=== PATIENT | female | born 1940 ===

== ENCOUNTER 2017-09-09 11:50 | Inpatient (IN) | payer MEDICARE, MEDICAID ==
[2017-09-09 11:50] VITALS: BMI 21.2
--- NOTE | 2017-09-09 12:27 | C.PDOC ---
History Of Present Illness 77 y/o female, whose PMH includes atrial Fibrillation, arrhythmia (afib), dementia, depression, HTN, hypercholesterolemia, and Seizures, who presents to the emergency department from shelter s/p having 2 episodes of seizure. Patient is a poor historian and is unable to tell if she used Keppra. Additionally, patient is pointing to chest. No other complaints were made. Time Seen by Provider: 09/09/17 12:10 Chief Complaint (Nursing): Seizure History Per: Patient History/Exam Limitations: no limitations Recent Seizure Activity Began: Just Before Arrival Number Of Seizures: Multiple (2) Length Of Seizures (Duration): Unknown Past Medical History Reviewed: Historical Data, Nursing Documentation, Vital Signs Vital Signs: Last Vital Signs Temp 98.4 F 09/09/17 12:14 Pulse 93 H 09/09/17 12:14 Resp 16 09/09/17 12:14 BP 157/78 H 09/09/17 12:14 Pulse Ox 97 09/09/17 15:14 - Medical History PMH: Anxiety, Arthritis, Atrial Fibrillation, Cardia Arrhythmia (afib), Dementia , Depression, HTN, Hypercholesterolemia, Rheumatoid Arthritis, Seizures Denies: Alzheimer's Disease, Chronic Kidney Disease Family History: States: Unknown Family Hx - Social History Hx Alcohol Use: No Hx Substance Use: No Review Of Systems Review Of Systems: ROS cannot be obtained secondary to pt's inabilty to answer questions. Constitutional: Negative for: Fever Respiratory: Negative for: Shortness of Breath Neurological: Positive for: Seizures Physical Exam - Physical Exam Appears: Well, Non-toxic, No Acute Distress Skin: Normal Color, Warm, Dry Head: Atraumatic, Normacephalic ED Course And Treatment - Laboratory Results Result Diagrams: 09/09/17 13:03 09/09/17 14:49 O2 Sat by Pulse Oximetry: 97 (room air) Pulse Ox Interpretation: Normal Medical Decision Making Medical Decision Making: Impression: 77 y/o female with 2 episodes of seizure prior to arrival from shelter. Poor historian and limited ROS. 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 A right frontal subarachnoid hemorrhage was resolved. Follow up CT or mRI are available if clinically warranted. 09/09/2017 2:40 PM Patient had a 3 minute seizure and was treated with Ativan, Keppra and Sodium Chloride. 09/09/2017 3:10 PM Case discussed with Dr. Maria Guadalupe Garcia who is accepting case and asked to view patient drug screen and admit to telemetry. Disposition - Disposition Disposition Time: 15:16 Condition: GOOD Forms: [employer] (Faroese) - Clinical Impression Clinical Impression: Seizure, Generalized-onset seizures - Scribe Statement The provider has reviewed the documentation as recorded by the Scribe Scribe Attestation: Daria Christianson MD Scribe Attestation: All medical record entries made by the Scribe were at my direction and personally dictated by me. I have reviewed the chart and agree that the record accurately reflects my personal performance of the history, physical exam, medical decision making, and the department course for this patient. I have also personally directed, reviewed, and agree with the discharge instructions and disposition. Decision To Admit - Pt Status Changed To: Hospital Disposition Of: Inpatient - Admit Certification Admit to Inpatient:: After my assessment, the patient will require hospitalization for at least two midnights. This is because of the severity of symptoms shown, intensity of services needed, and/or the medical risk in this patient being treated as an outpatient. - InPatient: Physician Admission Certification: I certify that this patient requires 2 or more midnights of care for the following reason:: After my assessment, the patient will require hospitalization for at least two midnights. This is because of the severity of symptoms shown, intensity of services needed, and/or the medical risk in this patient being treated as an outpatient. - . Bed Request Type: Telemetry (multiple seizure and chronic A fib) Patient Diagnosis: Generalized seizure disorder
[2017-09-09 12:56] LABS: BASO # 0.2 K/uL (0.0-0.2); BASO % 1.3 % (0.0-2.0); EOS # 0.3 K/uL (0.0-0.7); EOS % 2.1 % (0.0-4.0); HEMOGLOBIN 15.3 g/dL (11.0-16.0); LYMPH % 43.9 % (20.0-40.0); MEAN CELL VOLUME 85.2 fL (81.0-99.0); MEAN CORPUSCULAR HEMOGLOBIN 28.3 pg (27.0-31.0); MEAN CORPUSCULAR HGB CONC 33.2 g/dL (33.0-37.0); MEAN PLATELET VOLUME 9.5 fL (7.2-11.7); MONO # 0.9 K/uL (0.0-0.8); MONO % 6.3 % (0.0-10.0); NEUT # 6.4 K/uL (1.8-7.0); NEUT % 46.4 % (50.0-75.0); NRBC % 0.4 % (0.0-2.0); RBC 5.41 Mil/uL (3.80-5.20); RED CELL DISTRIBUTION WIDTH 14.3 % (11.5-14.5); WHITE BLOOD COUNT 13.7 K/uL (4.8-10.8)
--- NOTE | 2017-09-09 13:40 | CT ---
PROCEDURE: CT HEAD WITHOUT CONTRAST. HISTORY: seizure COMPARISON: Noncontrast head CT 03/30/2016. TECHNIQUE: Axial computed tomography images were obtained through the head/brain without intravenous contrast. Radiation dose: Total exam DLP = 840.58 mGy-cm. This CT exam was performed using one or more of the following dose reduction techniques: Automated exposure control, adjustment of the mA and/or kV according to patient size, and/or use of iterative reconstruction technique. FINDINGS: HEMORRHAGE: Prior right frontal intracranial hemorrhage has resolved. BRAIN: Interval prominent cystic encephalomalacia at the right frontal lobe representing chronic infarct is identified currently. A small chronic infarct is seen at the left occipital lobe in the interval as well as a chronic lacune of left thalamus and right maria a. Diffuse cerebral atrophy chronic microangiopathy are reiterated. Cerebellum is stable and unremarkable appearing. VENTRICLES: Unremarkable. No hydrocephalus. CALVARIUM: Unremarkable. PARANASAL SINUSES: Unremarkable as visualized. No significant inflammatory changes. MASTOID AIR CELLS: Right mastoid effusions identified. OTHER FINDINGS: None. 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 A right frontal subarachnoid hemorrhage has resolved. Follow-up CT or MRI are available if clinically warranted.
[2017-09-09 14:51] LABS: ALBUMIN 4.6 g/dL (3.5-5.0); BLOOD UREA NITROGEN 14 mg/dL (7-17); CALCIUM 9.7 mg/dl (8.6-10.4); GFR AFRICAN-AMERICAN > 60; GFR NON-AFRICAN AMERICAN > 60
[2017-09-09 14:52] LABS: ALB/GLOB RATIO 1.2 (1.0-2.1); ALT/SGPT 34 U/L (9-52); AST/SGOT 56 U/L (14-36)
[2017-09-09] MEDS: Sodium Chloride 0.9% 1,000 ML IV SCH ×2 (15:02→23:00)
[2017-09-09] MEDS ORDERED: Valproate 1,000 MG in Sodium Chloride 0.9% 100 ML IVPB ONE (15:25)
--- NOTE | 2017-09-09 15:40 | CP.PCM.HP ---
<Andrew Moctezuma - Last Filed: 09/09/17 16:30> Meds Allergies/Adverse Reactions: Allergies Allergy/AdvReac Type Severity Reaction Status Date / Time No Known Allergies Allergy Verified 03/21/16 09:49 Results - Vital Signs Recent Vital Signs: Last Vital Signs Temp 98.4 F 09/09/17 12:14 Pulse 120 H 09/09/17 15:45 Resp 18 09/09/17 15:45 BP 148/80 09/09/17 15:45 Pulse Ox 99 09/09/17 15:45 - Labs Result Diagrams: 09/09/17 13:03 09/09/17 14:49 Labs: Laboratory Results - last 24 hr 09/09/17 09/09/17 09/09/17 11:55 13:03 14:49 WBC 13.7 H RBC 5.41 H Hgb 15.3 Hct 46.0 MCV 85.2 MCH 28.3 MCHC 33.2 RDW 14.3 Plt Count 348 MPV 9.5 Neut % (Auto) 46.4 L Lymph % (Auto) 43.9 H Sumner % (Auto) 6.3 Eos % (Auto) 2.1 Baso % (Auto) 1.3 Neut # (Auto) 6.4 Lymph # (Auto) 6.0 H Sumner # (Auto) 0.9 H Eos # (Auto) 0.3 Baso # (Auto) 0.2 Differential Comment PT INR Sodium 140 Potassium 3.7 Chloride 101 Carbon Dioxide 22 Anion Gap 21 H BUN 14 Creatinine 0.8 Est GFR ( Amer) > 60 Est GFR (Non-Af Amer) > 60 POC Glucose (mg/dL) 254 H Random Glucose 249 H Calcium 9.7 Total Bilirubin 1.1 AST 56 H ALT 34 Alkaline Phosphatase 107 Troponin I 0.0160 Total Protein 8.6 H Albumin 4.6 Globulin 4.0 H Albumin/Globulin Ratio 1.2 Urine Color Urine Clarity Urine pH Ur Specific Kenna Urine Protein Urine Glucose (UA) Urine Ketones Urine Blood Urine Nitrate Urine Bilirubin Urine Urobilinogen Ur Leukocyte Esterase Urine WBC (Auto) Urine RBC (Auto) Ur Squamous Epith Cells Urine Bacteria Urine Opiates Screen Urine Methadone Screen Ur Barbiturates Screen Ur Phencyclidine Scrn Ur Amphetamines Screen U Benzodiazepines Scrn U Oth Cocaine Metabols U Cannabinoids Screen 09/09/17 09/09/17 09/09/17 15:43 16:08 16:09 WBC RBC Hgb Hct MCV MCH MCHC RDW Plt Count MPV Neut % (Auto) Lymph % (Auto) Sumner % (Auto) Eos % (Auto) Baso % (Auto) Neut # (Auto) Lymph # (Auto) Sumner # (Auto) Eos # (Auto) Baso # (Auto) Differential Comment PT 12.1 INR 1.1 Sodium Potassium Chloride Carbon Dioxide Anion Gap BUN Creatinine Est GFR ( Amer) Est GFR (Non-Af Amer) POC Glucose (mg/dL) Random Glucose Calcium Total Bilirubin AST ALT Alkaline Phosphatase Troponin I Total Protein Albumin Globulin Albumin/Globulin Ratio Urine Color Straw Urine Clarity Clear Urine pH 7.0 Ur Specific Kenna 1.010 Urine Protein 2+ H Urine Glucose (UA) 3+ H Urine Ketones Negative Urine Blood 1+ H Urine Nitrate Negative Urine Bilirubin Negative Urine Urobilinogen Normal Ur Leukocyte Esterase 1+ H Urine WBC (Auto) 42 H Urine RBC (Auto) 30 H Ur Squamous Epith Cells < 1 Urine Bacteria Rare Urine Opiates Screen Negative Urine Methadone Screen Negative Ur Barbiturates Screen Negative Ur Phencyclidine Scrn Negative Ur Amphetamines Screen Negative U Benzodiazepines Scrn Negative U Oth Cocaine Metabols Negative U Cannabinoids Screen Negative <Jonathan Rhoades - Last Filed: 09/09/17 17:01> History of Present Illness - History of Present Illness History of Present Illness: Medicine H&P CC: 2 witnessed seizures at [place]. HPI: 77 y/o female, whose PMH includes atrial Fibrillation, arrhythmia (afib), dementia, depression, HTN, hypercholesterolemia, and Seizures, who [facility] emergency department [facility] s[facility]p having 2 episodes of seizure. Patient is a poor historian and is unable to tell if she used Keppra. Additionally, patient is pointing to chest. No other complaints were made. as per ems pt has 2 witnessed seizures at [facility], pt awake but confused (hx of dementia) Patient had a 3 minute seizure in ED and was treated with Ativan, Keppra and Sodium Chloride. PMHx: Anxiety, Arthritis, Atrial Fibrillation, Cardia Arrhythmia (afib), Dementia, Depression, HTN, Hypercholesterolemia, Rheumatoid Arthritis, Seizures PSHx: Tonsillectomy, right brest cyst removal Meds: see EMR Allergies: NKDA FamHx: unknown SocHx: unknown PMD: Tamy Past Patient History - Infectious Disease Hx of Infectious Diseases: None - Past Medical History & Family History Past Medical History?: Yes - Past Social History Smoking Status: Never Smoked - CARDIAC Hx Atrial Fibrillation: Yes Hx Cardia Arrhythmia: Yes (afib) Hx Hypercholesterolemia: Yes Hx Hypertension: Yes - PULMONARY Hx Respiratory Disorders: No - NEUROLOGICAL Hx Alzheimer's Disease: No Hx Dementia: Yes Hx Seizures: Yes - HEENT Hx HEENT Problems: Yes Hx Cataracts: Yes - RENAL Hx Chronic Kidney Disease: No - ENDOCRINE/METABOLIC Hx Endocrine Disorders: Yes Hx Diabetes Mellitus Type 2: Yes - HEMATOLOGICAL/ONCOLOGICAL Hx Blood Disorders: No - INTEGUMENTARY Hx Dermatological Problems: No - MUSCULOSKELETAL/RHEUMATOLOGICAL Hx Arthritis: Yes Hx Rheumatoid Arthritis: Yes - GASTROINTESTINAL Hx Gastrointestinal Disorders: No - GENITOURINARY/GYNECOLOGICAL Hx Genitourinary Disorders: Yes Hx Incontinence: Yes Hx Urinary Tract Infection: Yes - PSYCHIATRIC Hx Anxiety: Yes Hx Depression: Yes Hx Substance Use: No - SURGICAL HISTORY Hx Surgeries: Yes (tonsillectomy, right brest cyst removal) Hx Hysterectomy: Yes - ANESTHESIA Hx Anesthesia: Yes Hx Anesthesia Reactions: No Hx Malignant Hyperthermia: No Physical Exam - Additional Findings Additional findings: - Constitutional Appears: No Acute Distress, Chronically Ill, Agitated - Head Exam Head Exam: ATRAUMATIC, NORMOCEPHALIC - Eye Exam Eye Exam: EOMI (however pupils Dilated) - ENT Exam ENT Exam: Mucous Membranes Moist - Respiratory Exam Respiratory Exam: NORMAL BREATHING PATTERN. absent: Respiratory Distress - Cardiovascular Exam Cardiovascular Exam: IRREGULAR RHYTHM. +S1, +S2 absent: Tachycardia - GI/Abdominal Exam GI & Abdominal Exam: Decreased Bowel Sounds. absent: Rebound, Rigid, Tenderness , Distended - Extremities Exam Extremities exam: Negative for: calf tenderness - Neurological Exam Neurological exam: absent: Alert, Awake, Oriented x3 -pt is lethargic / disoriented 2/2 hx of dementia + acute seizures. -cannot perform full neuro exam due to lack of cooperation, however patient moves right limbs and withdraws to pain (pt does not move Left limbs, left hand thenar eminence decreased musculature) - Psychiatric Exam Psychiatric exam: Flat Affect, Depressed Mood - Skin Skin Exam: Dry, Normal Color, Warm Results - Vital Signs Recent Vital Signs: Last Vital Signs Temp 98.4 F 09/09/17 12:14 Pulse 83 09/09/17 15:03 Resp 24 09/09/17 15:03 BP 186/105 H 09/09/17 15:03 Pulse Ox 97 09/09/17 15:18 - Labs Result Diagrams: 09/09/17 13:03 09/09/17 14:49 Labs: Laboratory Results - last 24 hr 09/09/17 09/09/17 09/09/17 11:55 13:03 14:49 WBC 13.7 H RBC 5.41 H Hgb 15.3 Hct 46.0 MCV 85.2 MCH 28.3 MCHC 33.2 RDW 14.3 Plt Count 348 MPV 9.5 Neut % (Auto) 46.4 L Lymph % (Auto) 43.9 H Sumner % (Auto) 6.3 Eos % (Auto) 2.1 Baso % (Auto) 1.3 Neut # (Auto) 6.4 Lymph # (Auto) 6.0 H Sumner # (Auto) 0.9 H Eos # (Auto) 0.3 Baso # (Auto) 0.2 Differential Comment Sodium 140 Potassium 3.7 Chloride 101 Carbon Dioxide 22 Anion Gap 21 H BUN 14 Creatinine 0.8 Est GFR ( Amer) > 60 Est GFR (Non-Af Amer) > 60 POC Glucose (mg/dL) 254 H Random Glucose 249 H Calcium 9.7 Total Bilirubin 1.1 AST 56 H ALT 34 Alkaline Phosphatase 107 Troponin I 0.0160 Total Protein 8.6 H Albumin 4.6 Globulin 4.0 H Albumin/Globulin Ratio 1.2 Assessment & Plan - Assessment and Plan (Free Text) Assessment: Seizure Neuro consult, Dr. 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 A right frontal subarachnoid hemorrhage was resolved. Follow up CT or mRI are available if clinically warranted. f/u UDS f/u UA, UC Atrial Fibrillation elequis 2.5mg PO qD Hypertension BP 186/105 on admission Pt received Hydralazine 10mg IVP no IVP, monitor BP Hydralazine 10mg IVP for SPB>180 Continue home meds Diabetes ISS - medium dose Prophylaxis - Date & Time Date: 09/09/17 Time: 15:40
[2017-09-09 16:07] LABS: INR 1.1; PROTHROMBIN TIME 12.1 SECONDS (9.7-12.2)
[2017-09-09] MEDS ORDERED: Magnesium Hydroxide Susp 30 ml UD PO PRN (16:14)
[2017-09-09] MEDS ORDERED: Alum-Mag Hydrox-Simethicone Susp (30 mL) PO PRN (16:14)
[2017-09-09 16:26] LABS: SQUAMOUS EPITHIAL < 1 /hpf (0-5); URINE BACTERIA RARE (<OCC); URINE BILIRUBIN NEGATIVE (NEGATIVE); URINE BLOOD 1+ (NEGATIVE); URINE CLARITY Clear (Clear); URINE COLOR Straw (YELLOW); URINE GLUCOSE (UA) 3+ mg/dL (Normal); URINE LEUKOCYTE ESTERASE 1+ Leu/uL (Negative); URINE PROTEIN 2+ mg/dL (NEGATIVE); URINE UROBILINOGEN NORMAL mg/dL (0.2-1.0)
[2017-09-09 16:29] LABS: BARBITURATES, UR NEGATIVE (NEGATIVE); BENZODIAZEPINES, UR NEGATIVE (NEGATIVE); OPIATES, UR NEGATIVE (NEGATIVE); PHENCYCLIDINE, UR NEGATIVE (NEGATIVE)
--- NOTE | 2017-09-09 17:03 | RAD ---
HISTORY: seizure COMPARISON: 04/04/2016. FINDINGS: LUNGS: There is mild pulmonary venous congestion. No focal consolidation. PLEURA: No significant pleural effusion identified, no pneumothorax apparent. CARDIOVASCULAR: The heart is enlarged. Atherosclerotic aortic arch calcifications are present. OSSEOUS STRUCTURES: History. VISUALIZED UPPER ABDOMEN: Normal. OTHER FINDINGS: None. IMPRESSION: Cardiomegaly and mild pulmonary venous congestion. No active pulmonary disease.
--- NOTE | 2017-09-09 17:32 | CP.PCM.HP ---
<Jonathan Rhoades - Last Filed: 09/09/17 17:59> History of Present Illness - History of Present Illness History of Present Illness: Medicine H&P CC: Seizure HPI: This 77 y/o female with PMHx of Seizures, atrial Fibrillation, dementia, depression, HTN, HLD - presents to the ED from assisted after experiencing seizures. As per ems, she had 2 witnessed seizures at [facility], and was awake but confused. The patient is a poor historian due to her hx of dementia, and is unable to tell if she uses Keppra. The patient was pointing to her chest upon arrival to the ED. No additional complaints were made. While in the ED, she experienced a 3 minute seizure and was treated with Ativan, Keppra and Sodium Chloride. Further ROS could not be obtained due to lethargy and lack of cooperation and during exam. ED course: patient received ativan 2mg IVP x2; kepra 1000mg IVPB x1; NS 0.9 at 125cc/hr; pt seen and examined by Dr. Marte (Neuro); CXR showed increased heart silouhet and increased vascular markings in the lungs; CT head showed chronic L occiput infarct and prior rt front subarrachnoid hemorrhage which resolved ( chronic); Ekg showed Afib. PMHx: Anxiety, Arthritis, Atrial Fibrillation, Cardia Arrhythmia (afib), Dementia, Depression, HTN, Hypercholesterolemia, Rheumatoid Arthritis, Seizures PSHx: tonsillectomy, right brest cyst removal Meds: see EMR Allergies: NKDA FamHx: unknown SocHx: unknown PMD: Tamy Present on Admission - Present on Admission Any Indicators Present on Admission: No Review of Systems - Review of Systems Systems not reviewed;Unavailable: Other (ROS cannot be obtained secondary to pt' s inabilty to answer questions.) Past Patient History - Infectious Disease Hx of Infectious Diseases: None - Past Medical History & Family History Past Medical History?: Yes - Past Social History Smoking Status: Never Smoked - CARDIAC Hx Atrial Fibrillation: Yes Hx Cardia Arrhythmia: Yes (afib) Hx Hypercholesterolemia: Yes Hx Hypertension: Yes - PULMONARY Hx Respiratory Disorders: No - NEUROLOGICAL Hx Alzheimer's Disease: No Hx Dementia: Yes Hx Seizures: Yes - HEENT Hx HEENT Problems: Yes Hx Cataracts: Yes - RENAL Hx Chronic Kidney Disease: No - ENDOCRINE/METABOLIC Hx Endocrine Disorders: Yes Hx Diabetes Mellitus Type 2: Yes - HEMATOLOGICAL/ONCOLOGICAL Hx Blood Disorders: No - INTEGUMENTARY Hx Dermatological Problems: No - MUSCULOSKELETAL/RHEUMATOLOGICAL Hx Arthritis: Yes Hx Rheumatoid Arthritis: Yes - GASTROINTESTINAL Hx Gastrointestinal Disorders: No - GENITOURINARY/GYNECOLOGICAL Hx Genitourinary Disorders: Yes Hx Incontinence: Yes Hx Urinary Tract Infection: Yes - PSYCHIATRIC Hx Anxiety: Yes Hx Depression: Yes Hx Substance Use: No - SURGICAL HISTORY Hx Surgeries: Yes (tonsillectomy, right brest cyst removal) Hx Hysterectomy: Yes - ANESTHESIA Hx Anesthesia: Yes Hx Anesthesia Reactions: No Hx Malignant Hyperthermia: No Meds Allergies/Adverse Reactions: Allergies Allergy/AdvReac Type Severity Reaction Status Date / Time No Known Allergies Allergy Verified 03/21/16 09:49 Physical Exam - Additional Findings Additional findings: - Constitutional Appears: No Acute Distress, Chronically Ill, Lethargic - Head Exam Head Exam: ATRAUMATIC, NORMOCEPHALIC - Eye Exam Eye Exam: -could not assess EOMI (patient sedated) -pupils dilated, however responsive to light. - ENT Exam ENT Exam: Mucous Membranes Moist - Respiratory Exam Respiratory Exam: NORMAL BREATHING PATTERN. absent: Respiratory Distress - Cardiovascular Exam Cardiovascular Exam: IRREGULAR RHYTHM. +S1, +S2. absent: Tachycardia - GI/Abdominal Exam GI & Abdominal Exam: Hypoactive Bowel Sounds, Soft. absent: Distended, Firm, Rebound, Rigid, Tenderness - Extremities Exam Extremities exam: Negative for: calf tenderness - Neurological Exam Neurological exam: absent: Alert, Awake, Oriented x3 - patient withdraws R arm/ R leg to deep palpation - L arm / leg with minimal movement. - Psychiatric Exam Psychiatric exam: Flat Affect, Depressed Mood - Skin Skin Exam: Dry, Normal Color, Warm Results - Vital Signs Recent Vital Signs: Last Vital Signs Temp 98.4 F 09/09/17 12:14 Pulse 120 H 09/09/17 15:45 Resp 18 09/09/17 15:45 BP 148/80 09/09/17 15:45 Pulse Ox 99 09/09/17 15:45 - Labs Result Diagrams: 09/09/17 13:03 09/09/17 14:49 Labs: Laboratory Results - last 24 hr 09/09/17 09/09/17 09/09/17 11:55 13:03 14:49 WBC 13.7 H RBC 5.41 H Hgb 15.3 Hct 46.0 MCV 85.2 MCH 28.3 MCHC 33.2 RDW 14.3 Plt Count 348 MPV 9.5 Neut % (Auto) 46.4 L Lymph % (Auto) 43.9 H [place] % (Auto) 6.3 Eos % (Auto) 2.1 Baso % (Auto) 1.3 Neut # (Auto) 6.4 Lymph # (Auto) 6.0 H [place] # (Auto) 0.9 H Eos # (Auto) 0.3 Baso # (Auto) 0.2 Differential Comment PT INR Sodium 140 Potassium 3.7 Chloride 101 Carbon Dioxide 22 Anion Gap 21 H BUN 14 Creatinine 0.8 Est GFR ( Amer) > 60 Est GFR (Non-Af Amer) > 60 POC Glucose (mg/dL) 254 H Random Glucose 249 H Calcium 9.7 Total Bilirubin 1.1 AST 56 H ALT 34 Alkaline Phosphatase 107 Troponin I 0.0160 Total Protein 8.6 H Albumin 4.6 Globulin 4.0 H Albumin/Globulin Ratio 1.2 Urine Color Urine Clarity Urine pH Ur Specific [place] Urine Protein Urine Glucose (UA) Urine Ketones Urine Blood Urine Nitrate Urine Bilirubin Urine Urobilinogen Ur Leukocyte Esterase Urine WBC (Auto) Urine RBC (Auto) Ur Squamous Epith Cells Urine Bacteria Urine Opiates Screen Urine Methadone Screen Ur Barbiturates Screen Ur Phencyclidine Scrn Ur Amphetamines Screen U Benzodiazepines Scrn U Oth Cocaine Metabols U Cannabinoids Screen 09/09/17 09/09/17 09/09/17 15:43 16:08 16:09 WBC RBC Hgb Hct MCV MCH MCHC RDW Plt Count MPV Neut % (Auto) Lymph % (Auto) [place] % (Auto) Eos % (Auto) Baso % (Auto) Neut # (Auto) Lymph # (Auto) [place] # (Auto) Eos # (Auto) Baso # (Auto) Differential Comment PT 12.1 INR 1.1 Sodium Potassium Chloride Carbon Dioxide Anion Gap BUN Creatinine Est GFR ( Amer) Est GFR (Non-Af Amer) POC Glucose (mg/dL) Random Glucose Calcium Total Bilirubin AST ALT Alkaline Phosphatase Troponin I Total Protein Albumin Globulin Albumin/Globulin Ratio Urine Color Straw Urine Clarity Clear Urine pH 7.0 Ur Specific [place] 1.010 Urine Protein 2+ H Urine Glucose (UA) 3+ H Urine Ketones Negative Urine Blood 1+ H Urine Nitrate Negative Urine Bilirubin Negative Urine Urobilinogen Normal Ur Leukocyte Esterase 1+ H Urine WBC (Auto) 42 H Urine RBC (Auto) 30 H Ur Squamous Epith Cells < 1 Urine Bacteria Rare Urine Opiates Screen Negative Urine Methadone Screen Negative Ur Barbiturates Screen Negative Ur Phencyclidine Scrn Negative Ur Amphetamines Screen Negative U Benzodiazepines Scrn Negative U Oth Cocaine Metabols Negative U Cannabinoids Screen Negative 09/09/17 16:35 WBC RBC Hgb Hct MCV MCH MCHC RDW Plt Count MPV Neut % (Auto) Lymph % (Auto) [place] % (Auto) Eos % (Auto) Baso % (Auto) Neut # (Auto) Lymph # (Auto) [place] # (Auto) Eos # (Auto) Baso # (Auto) Differential Comment PT INR Sodium Potassium Chloride Carbon Dioxide Anion Gap BUN Creatinine Est GFR ( Amer) Est GFR (Non-Af Amer) POC Glucose (mg/dL) 369 H Random Glucose Calcium Total Bilirubin AST ALT Alkaline Phosphatase Troponin I Total Protein Albumin Globulin Albumin/Globulin Ratio Urine Color Urine Clarity Urine pH Ur Specific [place] Urine Protein Urine Glucose (UA) Urine Ketones Urine Blood Urine Nitrate Urine Bilirubin Urine Urobilinogen Ur Leukocyte Esterase Urine WBC (Auto) Urine RBC (Auto) Ur Squamous Epith Cells Urine Bacteria Urine Opiates Screen Urine Methadone Screen Ur Barbiturates Screen Ur Phencyclidine Scrn Ur Amphetamines Screen U Benzodiazepines Scrn U Oth Cocaine Metabols U Cannabinoids Screen Assessment & Plan - Assessment and Plan (Free Text) Assessment: Seizure -Generalized-onset seizures -Neurology consult, Dr. Marte, f/u recs f/u repeat head CT in am f/u MRI in am f/u UDS f/u UC for EEG monday 09/11 Sodium Chloride 0.9%) 1,000 mls @ 125 mls/hr IV .Q8H [facility] Ativan) 2 mg IVP Q6H PRN Seizure activity Kepra 750mg IVPB Q12H hold pt home kepra 500mg PO q12 -Head CT: No definitive acute intracranial findings although interval chronic lacunes are identified as well as small chronic lobar infarction left occipital lobe and conversion of prior infarct or chronic status at the right frontal lobe at this time. A right frontal subarachnoid hemorrhage was resolved. Follow up CT or MRI are available if clinically warranted. see full report. -EKG showing afib, see full report -CXR showing inc vascular markings, inc heart border, see full report. Atrial Fibrillation admit to Tele Eliquis) 2.5 mg PO Q12H [facility] Digoxin) 0.125 mg PO 1400 [facility] Diabetes Neurontin) 300 mg PO TID [facility] Amaryl) 4 mg PO 0800,1700 [facility] Novolog) 0 unit SC ACHS [facility] Hypertension BP elevated on admission - high of 186/105 Norvasc) 10 mg PO DAILY [facility] Apresoline) 25 mg PO QID [facility] Apresoline) 10 mg IVP Q6H PRN - for SBP > 180 Lopressor) 100 mg PO BIDBS [facility] GERD Maalox Plus 30 Ml) 30 ml PO Q4H PRN Colace) 100 mg PO DAILY [facility] Milk Of Magnesia) 30 ml PO DAILY PRN Zofran Inj) 4 mg IVP Q8H PRN Depression Remeron) 7.5 mg PO HS [facility] Prophylaxis SCDs Protonix Inj) 40 mg IVP DAILY [facility] diet: fine chopped, soft (carb consistent, low sodium, heart healthy) Case discussed with Dr. Cannon - Date & Time Date: 09/09/17 Time: 16:00 <Jeff Cannon - Last Filed: 09/09/17 20:25> Results - Vital Signs Recent Vital Signs: Last Vital Signs Temp 98.4 F 09/09/17 12:14 Pulse 109 H 09/09/17 19:01 Resp 18 09/09/17 19:01 BP 133/79 09/09/17 19:01 Pulse Ox 96 09/09/17 19:01 - Labs Result Diagrams: 09/09/17 13:03 09/09/17 14:49 Labs: Laboratory Results - last 24 hr 09/09/17 09/09/17 09/09/17 11:55 13:03 14:49 WBC 13.7 H RBC 5.41 H Hgb 15.3 Hct 46.0 MCV 85.2 MCH 28.3 MCHC 33.2 RDW 14.3 Plt Count 348 MPV 9.5 Neut % (Auto) 46.4 L Lymph % (Auto) 43.9 H [place] % (Auto) 6.3 Eos % (Auto) 2.1 Baso % (Auto) 1.3 Neut # (Auto) 6.4 Lymph # (Auto) 6.0 H [place] # (Auto) 0.9 H Eos # (Auto) 0.3 Baso # (Auto) 0.2 Differential Comment PT INR Sodium 140 Potassium 3.7 Chloride 101 Carbon Dioxide 22 Anion Gap 21 H BUN 14 Creatinine 0.8 Est GFR ( Amer) > 60 Est GFR (Non-Af Amer) > 60 POC Glucose (mg/dL) 254 H Random Glucose 249 H Calcium 9.7 Total Bilirubin 1.1 AST 56 H ALT 34 Alkaline Phosphatase 107 Troponin I 0.0160 Total Protein 8.6 H Albumin 4.6 Globulin 4.0 H Albumin/Globulin Ratio 1.2 Urine Color Urine Clarity Urine pH Ur Specific [place] Urine Protein Urine Glucose (UA) Urine Ketones Urine Blood Urine Nitrate Urine Bilirubin Urine Urobilinogen Ur Leukocyte Esterase Urine WBC (Auto) Urine RBC (Auto) Ur Squamous Epith Cells Urine Bacteria Urine Opiates Screen Urine Methadone Screen Ur Barbiturates Screen Ur Phencyclidine Scrn Ur Amphetamines Screen U Benzodiazepines Scrn U Oth Cocaine Metabols U Cannabinoids Screen 09/09/17 09/09/17 09/09/17 15:43 16:08 16:09 WBC RBC Hgb Hct MCV MCH MCHC RDW Plt Count MPV Neut % (Auto) Lymph % (Auto) [place] % (Auto) Eos % (Auto) Baso % (Auto) Neut # (Auto) Lymph # (Auto) [place] # (Auto) Eos # (Auto) Baso # (Auto) Differential Comment PT 12.1 INR 1.1 Sodium Potassium Chloride Carbon Dioxide Anion Gap BUN Creatinine Est GFR ( Amer) Est GFR (Non-Af Amer) POC Glucose (mg/dL) Random Glucose Calcium Total Bilirubin AST ALT Alkaline Phosphatase Troponin I Total Protein Albumin Globulin Albumin/Globulin Ratio Urine Color Straw Urine Clarity Clear Urine pH 7.0 Ur Specific [place] 1.010 Urine Protein 2+ H Urine Glucose (UA) 3+ H Urine Ketones Negative Urine Blood 1+ H Urine Nitrate Negative Urine Bilirubin Negative Urine Urobilinogen Normal Ur Leukocyte Esterase 1+ H Urine WBC (Auto) 42 H Urine RBC (Auto) 30 H Ur Squamous Epith Cells < 1 Urine Bacteria Rare Urine Opiates Screen Negative Urine Methadone Screen Negative Ur Barbiturates Screen Negative Ur Phencyclidine Scrn Negative Ur Amphetamines Screen Negative U Benzodiazepines Scrn Negative U Oth Cocaine Metabols Negative U Cannabinoids Screen Negative 09/09/17 16:35 WBC RBC Hgb Hct MCV MCH MCHC RDW Plt Count MPV Neut % (Auto) Lymph % (Auto) [place] % (Auto) Eos % (Auto) Baso % (Auto) Neut # (Auto) Lymph # (Auto) [place] # (Auto) Eos # (Auto) Baso # (Auto) Differential Comment PT INR Sodium Potassium Chloride Carbon Dioxide Anion Gap BUN Creatinine Est GFR ( Amer) Est GFR (Non-Af Amer) POC Glucose (mg/dL) 369 H Random Glucose Calcium Total Bilirubin AST ALT Alkaline Phosphatase Troponin I Total Protein Albumin Globulin Albumin/Globulin Ratio Urine Color Urine Clarity Urine pH Ur Specific [place] Urine Protein Urine Glucose (UA) Urine Ketones Urine Blood Urine Nitrate Urine Bilirubin Urine Urobilinogen Ur Leukocyte Esterase Urine WBC (Auto) Urine RBC (Auto) Ur Squamous Epith Cells Urine Bacteria Urine Opiates Screen Urine Methadone Screen Ur Barbiturates Screen Ur Phencyclidine Scrn Ur Amphetamines Screen U Benzodiazepines Scrn U Oth Cocaine Metabols U Cannabinoids Screen Attending/Attestation - Attestation I have personally seen and examined this patient.: Yes I have fully participated in the care of the patient.: Yes I have reviewed all pertinent clinical information: Yes
[2017-09-09] MEDS: (Novolog) Insulin Aspart, Recombinant 100 u/ml 10 ml vial SC SCH ×2 (18:14→21:30)
--- NOTE | 2017-09-10 01:06 | CP.PCM.CON ---
History of Present Illness - History of Present Illness History of Present Illness: 77 yr old woman who presented to the ER with several generalized tonic clonic seizures, now has been loaded with Keppra and depakote to prevent further seizures. 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 No hemorrhage no skull fracture noted. 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 PERRL. EOMI. CN 2-12 normal. She was withdrawing to painful stimuli, and moving right upper and lower extremity against gravity well. She was not moving left upper or lower limb well and this is baseline. +corneals, +dolls,+ gag, Tracks well. Nonverbal at this time. Past Patient History - Infectious Disease Hx of Infectious Diseases: None - Past Medical History & Family History Past Medical History?: Yes - Past Social History Smoking Status: Never Smoked - CARDIAC Hx Atrial Fibrillation: Yes Hx Cardia Arrhythmia: Yes (afib) Hx Hypercholesterolemia: Yes Hx Hypertension: Yes - PULMONARY Hx Respiratory Disorders: No - NEUROLOGICAL Hx Alzheimer's Disease: No Hx Dementia: Yes Hx Seizures: Yes - HEENT Hx HEENT Problems: Yes Hx Cataracts: Yes - RENAL Hx Chronic Kidney Disease: No - ENDOCRINE/METABOLIC Hx Endocrine Disorders: Yes Hx Diabetes Mellitus Type 2: Yes - HEMATOLOGICAL/ONCOLOGICAL Hx Blood Disorders: No - INTEGUMENTARY Hx Dermatological Problems: No - MUSCULOSKELETAL/RHEUMATOLOGICAL Hx Arthritis: Yes Hx Rheumatoid Arthritis: Yes - GASTROINTESTINAL Hx Gastrointestinal Disorders: No - GENITOURINARY/GYNECOLOGICAL Hx Genitourinary Disorders: Yes Hx Incontinence: Yes Hx Urinary Tract Infection: Yes - PSYCHIATRIC Hx Anxiety: Yes Hx Depression: Yes Hx Substance Use: No - SURGICAL HISTORY Hx Surgeries: Yes (tonsillectomy, right brest cyst removal) Hx Hysterectomy: Yes - ANESTHESIA Hx Anesthesia: Yes Hx Anesthesia Reactions: No Hx Malignant Hyperthermia: No Meds Allergies/Adverse Reactions: Allergies Allergy/AdvReac Type Severity Reaction Status Date / Time No Known Allergies Allergy Verified 03/21/16 09:49 - Medications Medications: Current Medications Acetaminophen (Tylenol 325mg Tab) 325 mg PO Q4H PRN PRN Reason: Fever >100.4 F Al Hydrox/Mg Hydrox/Simethicone (Maalox Plus 30 Ml) 30 ml PO Q4H PRN PRN Reason: Heartburn Amlodipine Besylate (Norvasc) 10 mg PO DAILY [facility] Apixaban (Eliquis) 2.5 mg PO Q12H [facility] Last Admin: 09/09/17 17:30 Dose: Not Given Digoxin (Digoxin) 0.125 mg PO 1400 [facility] Docusate Sodium (Colace) 100 mg PO DAILY [facility] Gabapentin (Neurontin) 300 mg PO TID [facility] Last Admin: 09/09/17 18:13 Dose: Not Given Glimepiride (Amaryl) 4 mg PO 0800,1700 [facility] Last Admin: 09/09/17 17:30 Dose: Not Given Hydralazine HCl (Apresoline) 25 mg PO QID [facility] Last Admin: 09/09/17 22:00 Dose: Not Given Hydralazine HCl (Apresoline) 10 mg IVP Q6H PRN PRN Reason: Systolic Blood Pressure Sodium Chloride (Sodium Chloride 0.9%) 1,000 mls @ 125 mls/hr IV .Q8H [facility] Last Admin: 09/09/17 23:00 Dose: 125 mls/hr Levetiracetam 750 mg/ Sodium (Chloride) 107.5 mls @ 420 mls/hr IVPB Q12H [facility] Insulin Aspart (Novolog) 0 unit SC ACHS [facility] PRN Reason: Protocol Last Admin: 09/09/17 21:30 Dose: Not Given Lorazepam (Ativan) 2 mg IVP Q6H PRN PRN Reason: Seizure activity Magnesium Hydroxide (Milk Of Magnesia) 30 ml PO DAILY PRN PRN Reason: Constipation Metoprolol Tartrate (Lopressor) 100 mg PO BIDBS [facility] Last Admin: 09/09/17 17:31 Dose: 100 mg Mirtazapine (Remeron) 7.5 mg PO HS [facility] Last Admin: 09/09/17 22:00 Dose: Not Given Ondansetron HCl (Zofran Inj) 4 mg IVP Q8H PRN PRN Reason: Nausea/Vomiting Pantoprazole Sodium (Protonix Inj) 40 mg IVP DAILY [facility] Results - Vital Signs Recent Vital Signs: Last Vital Signs Temp 97.9 F 09/09/17 20:29 Pulse 96 H 09/09/17 23:48 Resp 20 09/09/17 23:48 BP 147/74 09/09/17 23:48 Pulse Ox 98 09/09/17 23:48 - Labs Result Diagrams: 09/09/17 13:03 09/09/17 14:49 Labs: Laboratory Results - last 24 hr 09/09/17 09/09/17 09/09/17 11:55 13:03 14:49 WBC 13.7 H RBC 5.41 H Hgb 15.3 Hct 46.0 MCV 85.2 MCH 28.3 MCHC 33.2 RDW 14.3 Plt Count 348 MPV 9.5 Neut % (Auto) 46.4 L Lymph % (Auto) 43.9 H [place] % (Auto) 6.3 Eos % (Auto) 2.1 Baso % (Auto) 1.3 Neut # (Auto) 6.4 Lymph # (Auto) 6.0 H [place] # (Auto) 0.9 H Eos # (Auto) 0.3 Baso # (Auto) 0.2 Differential Comment PT INR Sodium 140 Potassium 3.7 Chloride 101 Carbon Dioxide 22 Anion Gap 21 H BUN 14 Creatinine 0.8 Est GFR ( Amer) > 60 Est GFR (Non-Af Amer) > 60 POC Glucose (mg/dL) 254 H Random Glucose 249 H Calcium 9.7 Total Bilirubin 1.1 AST 56 H ALT 34 Alkaline Phosphatase 107 Troponin I 0.0160 Total Protein 8.6 H Albumin 4.6 Globulin 4.0 H Albumin/Globulin Ratio 1.2 Urine Color Urine Clarity Urine pH Ur Specific [place] Urine Protein Urine Glucose (UA) Urine Ketones Urine Blood Urine Nitrate Urine Bilirubin Urine Urobilinogen Ur Leukocyte Esterase Urine WBC (Auto) Urine RBC (Auto) Ur Squamous Epith Cells Urine Bacteria Urine Opiates Screen Urine Methadone Screen Ur Barbiturates Screen Ur Phencyclidine Scrn Ur Amphetamines Screen U Benzodiazepines Scrn U Oth Cocaine Metabols U Cannabinoids Screen 09/09/17 09/09/17 09/09/17 15:43 16:08 16:09 WBC RBC Hgb Hct MCV MCH MCHC RDW Plt Count MPV Neut % (Auto) Lymph % (Auto) [place] % (Auto) Eos % (Auto) Baso % (Auto) Neut # (Auto) Lymph # (Auto) [place] # (Auto) Eos # (Auto) Baso # (Auto) Differential Comment PT 12.1 INR 1.1 Sodium Potassium Chloride Carbon Dioxide Anion Gap BUN Creatinine Est GFR ( Amer) Est GFR (Non-Af Amer) POC Glucose (mg/dL) Random Glucose Calcium Total Bilirubin AST ALT Alkaline Phosphatase Troponin I Total Protein Albumin Globulin Albumin/Globulin Ratio Urine Color Straw Urine Clarity Clear Urine pH 7.0 Ur Specific [place] 1.010 Urine Protein 2+ H Urine Glucose (UA) 3+ H Urine Ketones Negative Urine Blood 1+ H Urine Nitrate Negative Urine Bilirubin Negative Urine Urobilinogen Normal Ur Leukocyte Esterase 1+ H Urine WBC (Auto) 42 H Urine RBC (Auto) 30 H Ur Squamous Epith Cells < 1 Urine Bacteria Rare Urine Opiates Screen Negative Urine Methadone Screen Negative Ur Barbiturates Screen Negative Ur Phencyclidine Scrn Negative Ur Amphetamines Screen Negative U Benzodiazepines Scrn Negative U Oth Cocaine Metabols Negative U Cannabinoids Screen Negative 09/09/17 09/09/17 16:35 21:28 WBC RBC Hgb Hct MCV MCH MCHC RDW Plt Count MPV Neut % (Auto) Lymph % (Auto) [place] % (Auto) Eos % (Auto) Baso % (Auto) Neut # (Auto) Lymph # (Auto) [place] # (Auto) Eos # (Auto) Baso # (Auto) Differential Comment PT INR Sodium Potassium Chloride Carbon Dioxide Anion Gap BUN Creatinine Est GFR ( Amer) Est GFR (Non-Af Amer) POC Glucose (mg/dL) 369 H 273 H Random Glucose Calcium Total Bilirubin AST ALT Alkaline Phosphatase Troponin I Total Protein Albumin Globulin Albumin/Globulin Ratio Urine Color Urine Clarity Urine pH Ur Specific [place] Urine Protein Urine Glucose (UA) Urine Ketones Urine Blood Urine Nitrate Urine Bilirubin Urine Urobilinogen Ur Leukocyte Esterase Urine WBC (Auto) Urine RBC (Auto) Ur Squamous Epith Cells Urine Bacteria Urine Opiates Screen Urine Methadone Screen Ur Barbiturates Screen Ur Phencyclidine Scrn Ur Amphetamines Screen U Benzodiazepines Scrn U Oth Cocaine Metabols U Cannabinoids Screen Assessment & Plan - Assessment and Plan (Free Text) Assessment: 77 yr old woman who had several seizures and apparently is on keppra in intermediate. She has an old stroke that is acting as a focus and will need lifelong antiepileptic therapy. I will also recommend an MRI Brain. Plan: 1. Continue on keprra 500 mg bid 2. Continue on depakote 500 mg bid. 3. EEG monday 4. MRI brain when available. Thank you dr. reyes
[2017-09-10 04:25] LABS: BASO # 0.2 K/uL (0.0-0.2); BASO % 1.3 % (0.0-2.0); EOS % 0.1 % (0.0-4.0); LYMPH # 2.2 K/uL (1.0-4.3); LYMPH % 14.6 % (20.0-40.0); MEAN CELL VOLUME 84.6 fL (81.0-99.0); MEAN CORPUSCULAR HEMOGLOBIN 28.3 pg (27.0-31.0); MEAN CORPUSCULAR HGB CONC 33.5 g/dL (33.0-37.0); MEAN PLATELET VOLUME 8.8 fL (7.2-11.7); MONO # 0.6 K/uL (0.0-0.8); MONO % 4.1 % (0.0-10.0); NEUT # 11.9 K/uL (1.8-7.0); NEUT % 79.9 % (50.0-75.0); NRBC % 0.1 % (0.0-2.0); RBC 5.3 Mil/uL (3.80-5.20); RED CELL DISTRIBUTION WIDTH 14.5 % (11.5-14.5); WHITE BLOOD COUNT 14.9 K/uL (4.8-10.8)
[2017-09-10 04:27] LABS: ALB/GLOB RATIO 1.2 (1.0-2.1); ALBUMIN 4.5 g/dL (3.5-5.0); ALT/SGPT 46 U/L (9-52); AST/SGOT 36 U/L (14-36); BLOOD UREA NITROGEN 14 mg/dL (7-17); CALCIUM 10.1 mg/dl (8.6-10.4); GFR AFRICAN-AMERICAN > 60; GFR NON-AFRICAN AMERICAN > 60; HDL CHOLESTEROL 46 mg/dL (30-70)
[2017-09-10 04:38] LABS: LDL CHOLESTEROL 111 mg/dL (0-129)
[2017-09-10] MEDS ORDERED: Tramadol 25 mg PO ONE (05:37)
[2017-09-10] MEDS: Sodium Chloride 0.9% 1,000 ML IV SCH ×4 (07:10→23:28)
[2017-09-10] MEDS ORDERED: Sodium Chloride 0.9% 1,000 ML ONE (07:11)
--- NOTE | 2017-09-10 08:40 | CP.PCM.PN ---
Subjective - Date & Time of Evaluation Date of Evaluation: 09/10/17 Time of Evaluation: 15:17 - Subjective Subjective: PGY-[address] Cannon. No acute events noted overnight. Patient AAOx3. With left sided weakness due to old stroke. Able to follow commands but some component of expressive aphasia. Stated she did not have any pain and that she felt better today. Objective - Vital Signs/Intake and Output Vital Signs (last 24 hours): Temp Pulse Resp BP Pulse Ox 98.5 F 87 17 133/77 97 09/10/17 07:10 09/10/17 08:05 09/10/17 08:05 09/10/17 08:05 09/10/17 08:05 - Medications Medications: Current Medications Acetaminophen (Tylenol 325mg Tab) 325 mg PO Q4H PRN PRN Reason: Fever >100.4 F Al Hydrox/Mg Hydrox/Simethicone (Maalox Plus 30 Ml) 30 ml PO Q4H PRN PRN Reason: Heartburn Amlodipine Besylate (Norvasc) 10 mg PO DAILY [facility] Apixaban (Eliquis) 2.5 mg PO Q12H [facility] Last Admin: 09/10/17 05:11 Dose: Not Given Digoxin (Digoxin) 0.125 mg PO 1400 [facility] Docusate Sodium (Colace) 100 mg PO DAILY [facility] Gabapentin (Neurontin) 300 mg PO TID [facility] Last Admin: 09/09/17 18:13 Dose: Not Given Glimepiride (Amaryl) 4 mg PO 0800,1700 [facility] Last Admin: 09/09/17 17:30 Dose: Not Given Hydralazine HCl (Apresoline) 25 mg PO QID [facility] Last Admin: 09/09/17 22:00 Dose: Not Given Hydralazine HCl (Apresoline) 10 mg IVP Q6H PRN PRN Reason: Systolic Blood Pressure Sodium Chloride (Sodium Chloride 0.9%) 1,000 mls @ 125 mls/hr IV .Q8H [facility] Last Admin: 09/10/17 07:10 Dose: 125 mls/hr Levetiracetam 750 mg/ Sodium (Chloride) 107.5 mls @ 420 mls/hr IVPB Q12H [facility] Insulin Aspart (Novolog) 0 unit SC ACHS [facility] PRN Reason: Protocol Last Admin: 09/09/17 21:30 Dose: Not Given Lorazepam (Ativan) 2 mg IVP Q6H PRN PRN Reason: Seizure activity Magnesium Hydroxide (Milk Of Magnesia) 30 ml PO DAILY PRN PRN Reason: Constipation Metoprolol Tartrate (Lopressor) 100 mg PO BIDBS [facility] Last Admin: 09/09/17 17:31 Dose: 100 mg Mirtazapine (Remeron) 7.5 mg PO HS [facility] Last Admin: 09/09/17 22:00 Dose: Not Given Ondansetron HCl (Zofran Inj) 4 mg IVP Q8H PRN PRN Reason: Nausea/Vomiting Pantoprazole Sodium (Protonix Inj) 40 mg IVP DAILY [facility] - Labs Labs: 09/10/17 04:14 09/10/17 04:14 PT 12.1 SECONDS (9.7-12.2) 09/09/17 15:43 INR 1.1 09/09/17 15:43 - Additional Findings Additional findings: - Constitutional Appears: No Acute Distress, Chronically Ill, Lethargic - Head Exam Head Exam: ATRAUMATIC, NORMOCEPHALIC - Eye Exam Eye Exam: -eomi, perrla - ENT Exam ENT Exam: Mucous Membranes Moist - Respiratory Exam Respiratory Exam: NORMAL BREATHING PATTERN. absent: Respiratory Distress - Cardiovascular Exam Cardiovascular Exam: IRREGULAR RHYTHM. +S1, +S2. absent: Tachycardia - GI/Abdominal Exam GI & Abdominal Exam: Hypoactive Bowel Sounds, Soft. absent: Distended, Firm, Rebound, Rigid, Tenderness - Extremities Exam Extremities exam: Negative for: calf tenderness - Neurological Exam Neurological exam: absent: Alert, Awake, Oriented x3 - patient withdraws R arm/ R leg to deep palpation - L arm / leg with minimal movement. - Psychiatric Exam Psychiatric exam: Flat Affect, Depressed Mood - Skin Skin Exam: Dry, Normal Color, Warm Assessment and Plan - Assessment and Plan (Free Text) Assessment: Seizure -Generalized-onset seizures -Neurology consult, Dr. Marte, f/u recs * She has an old stroke that is acting as a focus and will need lifelong antiepileptic therapy f/u repeat head CT f/u MRI monday 09/11 UDS NEGATIVE UCx 09/09 shows possible contamination repeat UCx ordered for EEG monday 09/11 Dysphagia/Modified consistency diet - finely chopped and thin liquids Sodium Chloride 0.9%) 1,000 mls @ 75 mls/hr IV .Q8H [facility] Ativan 2 mg IVP Q6H PRN Seizure activity Keppra 750mg IVPB Q12H hold pt home keppra 500mg PO q12 -Head CT: No definitive acute intracranial findings although interval chronic lacunes are identified as well as small chronic lobar infarction left occipital lobe and conversion of prior infarct or chronic status at the right frontal lobe at this time. A right frontal subarachnoid hemorrhage was resolved. Follow up CT or MRI are available if clinically warranted. see full report. -EKG showing afib, see full report -CXR showing inc vascular markings, inc heart border, see full report. Atrial Fibrillation admit to Tele Eliquis 2.5 mg PO Q12H [facility] Digoxin 0.125 mg PO 1400 [facility] Diabetes Lipid panel NORMAL, TSH/Free T4 NORMAL Neurontin 300 mg PO TID [facility] Amaryl 4 mg PO 0800,1700 [facility] Novolog 0 unit SC ACHS [facility] Hypertension BP elevated on admission - high of 186/105 - improved Norvasc 10 mg PO DAILY [facility] Apresoline 25 mg PO QID [facility] Apresoline 10 mg IVP Q6H PRN - for SBP > 180 Lopressor 100 mg PO BIDBS [facility] GERD Maalox Plus 30 Ml 30 ml PO Q4H PRN Colace 100 mg PO DAILY [facility] Milk Of Magnesia 30 ml PO DAILY PRN Zofran Inj 4 mg IVP Q8H PRN Depression Remeron 7.5 mg PO HS [facility] Prophylaxis SCDs Protonix Inj 40 mg IVP DAILY [facility] diet: fine chopped, soft (carb consistent, low sodium, heart healthy) PT/OT screen Speech therapy screen Swallow eval and treat CODE STATUS: DNR/DNI Case discussed with Dr. Cannon
[2017-09-10] MEDS: (Novolog) Insulin Aspart, Recombinant 100 u/ml 10 ml vial SC SCH ×4 (08:54→21:17)
--- NOTE | 2017-09-10 13:42 | RAD ---
HISTORY: Seizure, AMS COMPARISON: 09/09/2017. FINDINGS: LUNGS: The lungs are well inflated. There is mild pulmonary venous congestion. PLEURA: No significant pleural effusion identified, no pneumothorax apparent. CARDIOVASCULAR: There is moderate cardiomegaly. OSSEOUS STRUCTURES: No significant abnormalities. VISUALIZED UPPER ABDOMEN: Normal. OTHER FINDINGS: None. IMPRESSION: No active pulmonary disease. Moderate cardiomegaly and mild pulmonary venous congestion.
[2017-09-10] MEDS ORDERED: Digoxin 125 mcg (0.125 mg) Tab PO SCH (14:00)
[2017-09-10] MEDS: Digoxin 125 mcg (0.125 mg) Tab PO SCH (16:00)
--- NOTE | 2017-09-10 17:48 | CT ---
PROCEDURE: CT HEAD WITHOUT CONTRAST. HISTORY: seizure, ams COMPARISON: 09/09/2017. TECHNIQUE: Axial computed tomography images were obtained through the head/brain without intravenous contrast. Radiation dose: Total exam DLP = 860.59 MGy-cm. This CT exam was performed using one or more of the following dose reduction techniques: Automated exposure control, adjustment of the mA and/or kV according to patient size, and/or use of iterative reconstruction technique. FINDINGS: HEMORRHAGE: No intracranial hemorrhage. BRAIN: There is redemonstration of right frontal and parietal lobe cystic encephalomalacia with volume loss and ex vacuo dilatation of the right lateral ventricle. There is an old left watershed territory infarction at the parieto-occipital lobe. Carey-white matter differentiation is preserved. There are old lacunar infarctions in the left basal ganglia. There is an old infarction in the right basal ganglia. There is no mass, mass effect or abnormal extra-axial fluid collection. VENTRICLES: There is mild age-related global parenchymal volume loss and proportionate enlargement of the ventricles and cortical sulci. CALVARIUM: The skull base and calvarium are normal. PARANASAL SINUSES: Predominantly clear. MASTOID AIR CELLS: Predominantly clear. OTHER FINDINGS: None. IMPRESSION: No acute intracranial abnormality. Right frontal and parietal lobe cystic encephalomalacia, sequela of remote MCA territory infarction. Old left MCA [employer]FFIC [employer] watershed territory infarction. Old lacunar infarctions in the right basal ganglia and left thalamus.
[2017-09-11 00:27] VITALS: RESP 20
[2017-09-11] MEDS: (Novolog) Insulin Aspart, Recombinant 100 u/ml 10 ml vial SC SCH ×4 (07:10→22:24)
--- NOTE | 2017-09-11 07:12 | CP.PCM.PN ---
Subjective - Date & Time of Evaluation Date of Evaluation: 09/11/17 Time of Evaluation: 07:09 - Subjective Subjective: Ms. Aranda was seen and examined at the bedside. She is alert, denies any headache, dizziness, blurred vision. She is able to follow simple commands such as opning her mouth, raising her right upper extremity with minimal movement noted in the right lower extremity, and left upper extremity contracted,and no movement noted in the lower extremity. There was no untoward events overnight. Objective - Vital Signs/Intake and Output Vital Signs (last 24 hours): Temp Pulse Resp BP Pulse Ox 99 F 86 20 151/86 H 95 09/10/17 23:25 09/10/17 23:30 09/10/17 23:25 09/10/17 23:25 09/10/17 23:25 - Medications Medications: Current Medications Acetaminophen (Tylenol 325mg Tab) 325 mg PO Q4H PRN PRN Reason: Fever >100.4 F Al Hydrox/Mg Hydrox/Simethicone (Maalox Plus 30 Ml) 30 ml PO Q4H PRN PRN Reason: Heartburn Amlodipine Besylate (Norvasc) 10 mg PO DAILY [facility] Last Admin: 09/10/17 10:25 Dose: Not Given Apixaban (Eliquis) 2.5 mg PO Q12H [facility] Last Admin: 09/11/17 06:03 Dose: 2.5 mg Digoxin (Digoxin) 0.125 mg PO 1400 [facility] Last Admin: 09/10/17 16:00 Dose: 0.125 mg Docusate Sodium (Colace) 100 mg PO DAILY [facility] Last Admin: 09/10/17 10:24 Dose: Not Given Gabapentin (Neurontin) 300 mg PO TID [facility] Last Admin: 09/10/17 17:53 Dose: 300 mg Glimepiride (Amaryl) 4 mg PO 0800,1700 [facility] Last Admin: 09/10/17 16:16 Dose: 4 mg Hydralazine HCl (Apresoline) 25 mg PO QID [facility] Last Admin: 09/10/17 21:22 Dose: 25 mg Hydralazine HCl (Apresoline) 10 mg IVP Q6H PRN PRN Reason: Systolic Blood Pressure Levetiracetam 750 mg/ Sodium (Chloride) 107.5 mls @ 420 mls/hr IVPB Q12H [facility] Last Admin: 09/10/17 21:22 Dose: 420 mls/hr Sodium Chloride (Sodium Chloride 0.9%) 1,000 mls @ 50 mls/hr IV .Q20H [facility] Last Admin: 09/10/17 23:28 Dose: Not Given Insulin Aspart (Novolog) 0 unit SC ACHS [facility] PRN Reason: Protocol Last Admin: 09/10/17 21:17 Dose: Not Given Lorazepam (Ativan) 2 mg IVP Q6H PRN PRN Reason: Seizure activity Magnesium Hydroxide (Milk Of Magnesia) 30 ml PO DAILY PRN PRN Reason: Constipation Metoprolol Tartrate (Lopressor) 100 mg PO BIDBS [facility] Last Admin: 09/10/17 16:08 Dose: 100 mg Mirtazapine (Remeron) 7.5 mg PO HS [facility] Last Admin: 09/10/17 21:55 Dose: 7.5 mg Ondansetron HCl (Zofran Inj) 4 mg IVP Q8H PRN PRN Reason: Nausea/Vomiting Pantoprazole Sodium (Protonix Inj) 40 mg IVP DAILY [facility] Last Admin: 09/10/17 10:30 Dose: 40 mg - Labs Labs: 09/10/17 04:14 09/10/17 04:14 PT 12.1 SECONDS (9.7-12.2) 09/09/17 15:43 INR 1.1 09/09/17 15:43 - Constitutional Appears: No Acute Distress - Head Exam Head Exam: NORMAL INSPECTION - Eye Exam Pupil Exam: PERRL - Neurological Exam Neurological Exam: Alert, Awake Neuro motor strength exam: Left Upper Extremity: 4, Right Upper Extremity: 0 ( contracted), Left Lower Extremity: 2/1, Right Lower Extremity: 0 Additional comments: awake, alert, able to follow simple commands, sensation is intact. Assessment and Plan (1) Seizure Assessment & Plan: Case discussed with Dr. Box, continue all current medical regimen. Pending EEG and MRI of the brain. Recommend hydration, treat any underlying infection and electrolyte abnormalities. Status: Acute
[2017-09-11 08:01] LABS: BASO % 0.5 % (0.0-2.0); EOS # 0.1 K/uL (0.0-0.7); HEMOGLOBIN 14.1 g/dL (11.0-16.0); LYMPH # 2.1 K/uL (1.0-4.3); MEAN CELL VOLUME 84.1 fL (81.0-99.0); MEAN CORPUSCULAR HEMOGLOBIN 28.9 pg (27.0-31.0); MEAN CORPUSCULAR HGB CONC 34.4 g/dL (33.0-37.0); MEAN PLATELET VOLUME 9.3 fL (7.2-11.7); MONO # 0.6 K/uL (0.0-0.8); MONO % 6.1 % (0.0-10.0); NEUT # 7.7 K/uL (1.8-7.0); NEUT % 72.4 % (50.0-75.0); NRBC % 0.1 % (0.0-2.0); RBC 4.88 Mil/uL (3.80-5.20); WHITE BLOOD COUNT 10.6 K/uL (4.8-10.8)
[2017-09-11 08:15] LABS: ALB/GLOB RATIO 1.1 (1.0-2.1); ALBUMIN 3.9 g/dL (3.5-5.0); ALT/SGPT 39 U/L (9-52); AST/SGOT 56 U/L (14-36); BLOOD UREA NITROGEN 14 mg/dL (7-17); CALCIUM 9.7 mg/dl (8.6-10.4); GFR AFRICAN-AMERICAN > 60; GFR NON-AFRICAN AMERICAN > 60
[2017-09-11] MEDS: Digoxin 125 mcg (0.125 mg) Tab PO SCH (13:07)
--- NOTE | 2017-09-11 15:23 | CP.PCM.PN ---
<[place] to[place] E - Last Filed: 09/11/17 18:35> Subjective - Date & Time of Evaluation Date of Evaluation: 09/11/17 Time of Evaluation: 08:20 - Subjective Subjective: Medicine progress note ( Dr. Francisco's Service) Patient was seen and examined at bedside. Patient is alert and awake. Patient denies any acute issues or discomfort. Patient is with left sided weakness as a result of an old CVA and with possibly expressive aphasia. Patient is able to follow some commands. As per pablo, patient is refusing diagnostic testing Objective - Vital Signs/Intake and Output Vital Signs (last 24 hours): Temp Pulse Resp BP Pulse Ox 98.2 F 86 20 168/80 H 96 09/11/17 07:00 09/11/17 14:34 09/11/17 07:00 09/11/17 07:00 09/11/17 14:34 - Medications Medications: Current Medications Acetaminophen (Tylenol 325mg Tab) 325 mg PO Q4H PRN PRN Reason: Fever >100.4 F Al Hydrox/Mg Hydrox/Simethicone (Maalox Plus 30 Ml) 30 ml PO Q4H PRN PRN Reason: Heartburn Amlodipine Besylate (Norvasc) 10 mg PO DAILY [facility] Last Admin: 09/11/17 10:10 Dose: 10 mg Apixaban (Eliquis) 2.5 mg PO Q12H [facility] Last Admin: 09/11/17 06:03 Dose: 2.5 mg Digoxin (Digoxin) 0.125 mg PO 1400 [facility] Last Admin: 09/11/17 13:07 Dose: 0.125 mg Docusate Sodium (Colace) 100 mg PO DAILY [facility] Last Admin: 09/11/17 10:10 Dose: 100 mg Gabapentin (Neurontin) 300 mg PO TID [facility] Last Admin: 09/11/17 13:07 Dose: 300 mg Glimepiride (Amaryl) 4 mg PO 0800,1700 [facility] Last Admin: 09/11/17 08:52 Dose: 4 mg Hydralazine HCl (Apresoline) 25 mg PO QID [facility] Last Admin: 09/11/17 13:08 Dose: 25 mg Hydralazine HCl (Apresoline) 10 mg IVP Q6H PRN PRN Reason: Systolic Blood Pressure Last Admin: 09/11/17 10:11 Dose: 10 mg Levetiracetam 750 mg/ Sodium (Chloride) 107.5 mls @ 420 mls/hr IVPB Q12H [facility] Last Admin: 09/11/17 10:11 Dose: 420 mls/hr Sodium Chloride (Sodium Chloride 0.9%) 1,000 mls @ 50 mls/hr IV .Q20H [facility] Last Admin: 09/10/17 23:28 Dose: Not Given Insulin Aspart (Novolog) 0 unit SC ACHS [facility] PRN Reason: Protocol Last Admin: 09/11/17 12:58 Dose: 3 unit Lorazepam (Ativan) 1 mg IVP Q6H PRN PRN Reason: Seizure activity Magnesium Hydroxide (Milk Of Magnesia) 30 ml PO DAILY PRN PRN Reason: Constipation Metoprolol Tartrate (Lopressor) 100 mg PO BIDBS [facility] Last Admin: 09/11/17 08:52 Dose: 100 mg Mirtazapine (Remeron) 7.5 mg PO HS [facility] Last Admin: 09/10/17 21:55 Dose: 7.5 mg Ondansetron HCl (Zofran Inj) 4 mg IVP Q8H PRN PRN Reason: Nausea/Vomiting Pantoprazole Sodium (Protonix Inj) 40 mg IVP DAILY [facility] Last Admin: 09/11/17 10:10 Dose: 40 mg - Labs Labs: 09/11/17 07:50 09/11/17 07:50 PT 12.1 SECONDS (9.7-12.2) 09/09/17 15:43 INR 1.1 09/09/17 15:43 - Constitutional Appears: No Acute Distress - Head Exam Head Exam: ATRAUMATIC - Eye Exam Eye Exam: EOMI - Respiratory Exam Respiratory Exam: NORMAL BREATHING PATTERN. absent: Chest Wall Tenderness, Prolonged Expiratory Phase, Rhonchi, Wheezes, Respiratory Distress, Stridor - Cardiovascular Exam Cardiovascular Exam: REGULAR RHYTHM, +S1, +S2. absent: Murmur - GI/Abdominal Exam GI & Abdominal Exam: Soft, Normal Bowel Sounds. absent: Distended, Firm, Guarding, Rigid, Tenderness - Extremities Exam Additional comments: - patient withdraws R arm/ R leg to deep palpation and with great movement - L arm / leg with very minimal movement. - Neurological Exam Neurological Exam: Alert, Awake - Psychiatric Exam Psychiatric exam: Normal Affect - Skin Skin Exam: Normal Color Assessment and Plan (1) Seizure Assessment & Plan: -Generalized-onset seizures -Neurology consult, Dr. Marte, f/u recs * She has an old stroke that is acting as a focus and will need lifelong antiepileptic therapy Head CT (09/09/17): No definitive acute intracranial findings although interval chronic lacunes are identified as well as small chronic lobar infarction left occipital lobe and conversion of prior infarct or chronic status at the right frontal lobe at this time. A right frontal subarachnoid hemorrhage has resolved. Follow-up CT or MRI are available if clinically warranted. Head CT (09/11/17): No acute intracranial abnormality. Right frontal and parietal lobe cystic encephalomalacia, sequela of remote MCA territory infarction. 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 Old lacunar infarctions in the right basal ganglia and left thalamus. Head MRI (09/11/17): There are 2 small acute infarct changes seen along the superomedial margins of a large right MCA territory chronic infarct. Diffuse gliosis are seen throughout most of the deep white matter right cerebral hemisphere. Associated ex vacuo dilatation right lateral ventricle due to the aforementioned large infarct. Lesser chronic periventricular white matter ischemic change left cerebral hemisphere. Scattered chronic bilateral basal nuclei, brainstem and left posterior temporal parietal watershed zone ischemic changes as above. No evidence of acute intracranial hemorrhage however there are hemosiderin deposits seen along the superficial margins of the large right MCA territory infarct.to significant generalized volume loss. No obstructive hydrocephalus. Pending EEG UDS NEGATIVE UCx 09/09 shows possible contamination, F/U repeat UC Dysphagia/Modified consistency diet - finely chopped and thin liquids Sodium Chloride 0.9%) 1,000 mls @ 75 mls/hr IV Q20H [facility] Ativan 2 mg IVP Q6H PRN Seizure activity Keppra 750mg IVPB Q12H -EKG showing afib, see full report -CXR showing inc vascular markings, inc heart border, see full report. Status: Acute (2) Atrial fibrillation Assessment & Plan: Eliquis 2.5 mg PO Q12H [facility] Digoxin 0.125 mg PO 1400 [facility] Status: Acute (3) Diabetes mellitus Assessment & Plan: Lipid panel NORMAL, TSH/Free T4 NORMAL HgbA1C: 7.7 Accuchecks Neurontin 300 mg PO TID [facility] Amaryl 4 mg PO 0800,1700 [facility] ISS- Medium dose Status: Acute (4) Hypertension Assessment & Plan: Norvasc 10 mg PO DAILY [facility] Apresoline 25 mg PO QID [facility] Apresoline 10 mg IVP Q6H PRN - for SBP > 180 Lopressor 100 mg PO BIDBS [facility] Status: Acute (5) GERD (gastroesophageal reflux disease) Assessment & Plan: Maalox Plus 30 Ml 30 ml PO Q4H PRN Zofran Inj 4 mg IVP Q8H PRN Status: Acute (6) Constipation Assessment & Plan: Colace 100 mg PO DAILY [facility] Milk Of Magnesia 30 ml PO DAILY PRN Status: Acute (7) Depression Assessment & Plan: Remeron 7.5 mg PO HS [facility] Status: Acute (8) Prophylactic measure Assessment & Plan: SCDs Protonix Inj 40 mg IVP DAILY [facility] Diet: fine chopped, soft (carb consistent, low sodium, heart healthy) PT/OT screen Speech therapy screen Swallow eval and treat CODE STATUS: DNR/DNI All management and plans discussed with Dr. Francisco Status: Acute <Jonathan Francisco H - Last Filed: 09/11/17 19:12> Objective - Vital Signs/Intake and Output Vital Signs (last 24 hours): Temp Pulse Resp BP Pulse Ox 98.5 F 74 20 139/74 96 09/11/17 15:47 09/11/17 18:57 09/11/17 15:47 09/11/17 15:47 09/11/17 15:47 - Medications Medications: Current Medications Acetaminophen (Tylenol 325mg Tab) 325 mg PO Q4H PRN PRN Reason: Fever >100.4 F Al Hydrox/Mg Hydrox/Simethicone (Maalox Plus 30 Ml) 30 ml PO Q4H PRN PRN Reason: Heartburn Amlodipine Besylate (Norvasc) 10 mg PO DAILY [facility] Last Admin: 09/11/17 10:10 Dose: 10 mg Apixaban (Eliquis) 2.5 mg PO Q12H [facility] Last Admin: 09/11/17 17:42 Dose: 2.5 mg Digoxin (Digoxin) 0.125 mg PO 1400 [facility] Last Admin: 09/11/17 13:07 Dose: 0.125 mg Docusate Sodium (Colace) 100 mg PO DAILY [facility] Last Admin: 09/11/17 10:10 Dose: 100 mg Gabapentin (Neurontin) 300 mg PO TID [facility] Last Admin: 09/11/17 17:42 Dose: 300 mg Glimepiride (Amaryl) 4 mg PO 0800,1700 [facility] Last Admin: 09/11/17 17:42 Dose: 4 mg Hydralazine HCl (Apresoline) 25 mg PO QID [facility] Last Admin: 09/11/17 17:42 Dose: 25 mg Hydralazine HCl (Apresoline) 10 mg IVP Q6H PRN PRN Reason: Systolic Blood Pressure Last Admin: 09/11/17 10:11 Dose: 10 mg Levetiracetam 750 mg/ Sodium (Chloride) 107.5 mls @ 420 mls/hr IVPB Q12H [facility] Last Admin: 09/11/17 10:11 Dose: 420 mls/hr Sodium Chloride (Sodium Chloride 0.9%) 1,000 mls @ 50 mls/hr IV .Q20H [facility] Last Admin: 09/10/17 23:28 Dose: Not Given Insulin Aspart (Novolog) 0 unit SC ACHS [facility] PRN Reason: Protocol Last Admin: 09/11/17 18:43 Dose: Not Given Lorazepam (Ativan) 1 mg IVP Q6H PRN PRN Reason: Seizure activity Last Admin: 09/11/17 16:04 Dose: 1 mg Magnesium Hydroxide (Milk Of Magnesia) 30 ml PO DAILY PRN PRN Reason: Constipation Metoprolol Tartrate (Lopressor) 100 mg PO BIDBS [facility] Last Admin: 09/11/17 17:42 Dose: 100 mg Mirtazapine (Remeron) 7.5 mg PO HS [facility] Last Admin: 09/10/17 21:55 Dose: 7.5 mg Ondansetron HCl (Zofran Inj) 4 mg IVP Q8H PRN PRN Reason: Nausea/Vomiting Pantoprazole Sodium (Protonix Inj) 40 mg IVP DAILY [facility] Last Admin: 09/11/17 10:10 Dose: 40 mg - Labs Labs: 09/11/17 07:50 09/11/17 07:50 PT 12.1 SECONDS (9.7-12.2) 09/09/17 15:43 INR 1.1 09/09/17 15:43 Attending/Attestation - Attestation I have personally seen and examined this patient.: Yes I have fully participated in the care of the patient.: Yes I have reviewed all pertinent clinical information, including history, physical exam and plan: Yes Notes (Text): 09/11/17 19:10 Medical attending: Patient was seen and examined by me. Agree with the above note by the resident The patient was not in any acute distress when I came and saw. I was later notified patient was hesitant about MRI, we tried small dose of ativan and later she went to the MRI, results of which are pending at this moment. Jonathan Francisco
--- NOTE | 2017-09-11 18:13 | MRI ---
PROCEDURE: MRI BRAIN WITHOUT CONTRAST HISTORY: Stroke COMPARISON: Comparison made with prior study dated 09/10/2017 TECHNIQUE: Multiplanar, multisequence MR images of the brain were obtained without intravenous contrast enhancement. Study is significantly limited by motion artifact. FINDINGS: HEMORRHAGE: No evidence of acute parenchymal, subarachnoid or extra-axial hemorrhage. There is hemosiderin deposition seen along the superficial margins of large chronic right MCA territory infarct particularly along the perisylvian region . In addition, DWI: There are 2 small focal areas of restricted diffusion along the superomedial on margin of the at aforementioned chronic infarct consistent with acute/subacute ischemic changes. BRAIN PARENCHYMA: As mentioned above, large chronic MCA territory infarct with 2 smaller focal areas of more acute/subacute ischemia along its superomedial margins. Chronic diffuse/ confluent chronic white matter ischemic changes seen throughout most of the right cerebral hemisphere with lesser changes in the left cerebral hemisphere. In addition, there are scattered chronic bilateral basal nuclei and brainstem ischemic changes. . More discrete small chronic infarct in the left posterior temporoparietal watershed zone. . There is associated ex vacuo dilatation of the right lateral ventricle. Moderate to significant generalized volume loss is also present. Moderate to significant generalized volume loss VENTRICLES: No obstructive hydrocephalus, not withstanding the aforementioned expected dilatation changes right lateral ventricle. CRANIUM: Not well delineated due to significant motion artifact ORBITS: Changes of left-sided cataract surgery. PARANASAL SINUSES/MASTOIDS: Partial opacification both mastoid air complexes right greater than left. VASCULAR SYSTEM: Skull base flow voids intact. OTHER FINDINGS: None. IMPRESSION: There are 2 small acute infarct changes seen along the superomedial margins of a large right MCA territory chronic infarct. Diffuse gliosis are seen throughout most of the deep white matter right cerebral hemisphere. Associated ex vacuo dilatation right lateral ventricle due to the aforementioned large infarct. Lesser chronic periventricular white matter ischemic change left cerebral hemisphere. Scattered chronic bilateral basal nuclei, brainstem and left posterior temporal parietal watershed zone ischemic changes as above. No evidence of acute intracranial hemorrhage however there are hemosiderin deposits seen along the superficial margins of the large right MCA territory infarct. to significant generalized volume loss. No obstructive hydrocephalus. These findings discussed with Nurse Mcgrath at approximately 5:50 p.m. with written down and read back verification.
--- NOTE | 2017-09-11 19:50 | CARD ---
APPROVED REPORT EKG Measurement Heart [id number] <Conclusion> Atrial fibrillation with rapid ventricular response with premature ventricular or aberrantly conducted complexes Septal infarct, age undetermined ST & T wave abnormality, consider lateral ischemia Abnormal ECG
[2017-09-11] MEDS: Sodium Chloride 0.9% 1,000 ML IV SCH (21:06)
[2017-09-12] MEDS: Sodium Chloride 0.9% 1,000 ML IV SCH (05:36)
[2017-09-12] MEDS: (Novolog) Insulin Aspart, Recombinant 100 u/ml 10 ml vial SC SCH ×2 (08:01→12:30)
[2017-09-12 08:13] VITALS: TEMP 97.8; O2SAT 96
[2017-09-12 08:14] LABS: BASO % 0.5 % (0.0-2.0); EOS # 0.3 K/uL (0.0-0.7); EOS % 3.6 % (0.0-4.0); HEMOGLOBIN 14.6 g/dL (11.0-16.0); LYMPH # 1.5 K/uL (1.0-4.3); LYMPH % 15.3 % (20.0-40.0); MEAN CELL VOLUME 85.1 fL (81.0-99.0); MEAN CORPUSCULAR HEMOGLOBIN 29.3 pg (27.0-31.0); MEAN CORPUSCULAR HGB CONC 34.5 g/dL (33.0-37.0); MONO # 0.6 K/uL (0.0-0.8); MONO % 6.7 % (0.0-10.0); NEUT % 73.9 % (50.0-75.0); NRBC % 0.1 % (0.0-2.0); RBC 4.99 Mil/uL (3.80-5.20); RED CELL DISTRIBUTION WIDTH 14.6 % (11.5-14.5); WHITE BLOOD COUNT 9.5 K/uL (4.8-10.8)
[2017-09-12 08:47] LABS: ALB/GLOB RATIO 1.1 (1.0-2.1); ALBUMIN 3.7 g/dL (3.5-5.0); ALT/SGPT 35 U/L (9-52); AST/SGOT 34 U/L (14-36); BLOOD UREA NITROGEN 18 mg/dL (7-17); CALCIUM 9.3 mg/dl (8.6-10.4); GFR AFRICAN-AMERICAN > 60; GFR NON-AFRICAN AMERICAN > 60
--- NOTE | 2017-09-12 09:34 | EEG ---
DATE: 09/09/2017 Technical Information: Electrodes were placed according to the 10-20 International electrode system by ct scan special procedures technologist. Total of 23 electrodes (21 EEG and 2 EKG) were placed. EEG activity was digitally recorded referentially to P1/P2 or A1/A2 electrodes. Continuous monitoring with EEG was performed using digital analysis for spike detection. The listedplaces spike and seizure detection algorithms were used for digital EEG analysis throughout the monitoring period to screen the EEG in real-time and aldair the data file with pointers to electrographic seizures and interictal discharges. EEG was screened for electrographic seizures and interictal discharges by a technologist. Physician, epileptologist reviewed detections as well as extensive random samples and whole EEG study in detail. Digital EEG Analysis: Was carried out including FFT (Fast Fourier Transform), R2D2 (Rhythmicity Run Detection and Display), Relative Asymmetry Spectrogram, and voltage plot by the [employer] Software. The qualitative EEG analysis and the voltage plot mapping were used for detection of foci of paroxysmal and abnormal electrical cortical activity. General Description: Background Rhythm: There is a well-formed, 8-10 Hz posterior dominant rhythm that is reactive, symmetric, and attenuates with eye opening. There was a normal amount of frontal beta noted bilaterally. There is no sleep recorded. Activation Procedures: Photic stimulation: There is no driving noted. Hyperventilation: There is slowing noted that is self-remitted. Abnormal Activity: There are no focal epileptiform discharges noted. No clinical or subclinical seizures noted. Impression: This is a normal awake and drowsy EEG. Clinical correlation is required. Pavel Marte MD
[2017-09-12] MEDS ORDERED: Potassium Chloride 20 mEq/15 ml LIQ UD PO ONE ×2 (09:55→12:30)
--- NOTE | 2017-09-12 10:44 | CP.PCM.DIS ---
<Clover Holbrook E - Last Filed: 09/12/17 13:14> Provider - Provider Date of Admission: 09/09/17 15:31 Attending physician: Jonathan Francisco DO Time Spent in preparation of Discharge (in minutes): 45 Diagnosis - Discharge Diagnosis (1) Seizure Status: Acute (2) Atrial fibrillation Status: Acute (3) Diabetes mellitus Status: Acute (4) Hypertension Status: Acute (5) GERD (gastroesophageal reflux disease) Status: Acute (6) Constipation Status: Acute (7) Depression Status: Acute (8) Prophylactic measure Status: Acute Hospital Course - Lab Results Lab Results: Micro Results 09/09/17 18:53 Urine,Catheterized Urine Culture - Final <10,000 CFU/ML. MULTIPLE SPECIES. PROBABLE CONTAMINATION. Most Recent Lab Values WBC 9.5 K/uL (4.8-10.8) 09/12/17 08:03 RBC 4.99 Mil/uL (3.80-5.20) 09/12/17 08:03 Hgb 14.6 g/dL (11.0-16.0) 09/12/17 08:03 Hct 42.4 % (34.0-47.0) 09/12/17 08:03 MCV 85.1 fL (81.0-99.0) 09/12/17 08:03 MCH 29.3 pg (27.0-31.0) 09/12/17 08:03 MCHC 34.5 g/dL (33.0-37.0) 09/12/17 08:03 RDW 14.6 % (11.5-14.5) H 09/12/17 08:03 Plt Count 253 K/uL (130-400) 09/12/17 08:03 MPV 9.0 fL (7.2-11.7) 09/12/17 08:03 Neut % (Auto) 73.9 % (50.0-75.0) 09/12/17 08:03 Lymph % (Auto) 15.3 % (20.0-40.0) L 09/12/17 08:03 [place] % (Auto) 6.7 % (0.0-10.0) 09/12/17 08:03 Eos % (Auto) 3.6 % (0.0-4.0) 09/12/17 08:03 Baso % (Auto) 0.5 % (0.0-2.0) 09/12/17 08:03 Neut # (Auto) 7.0 K/uL (1.8-7.0) 09/12/17 08:03 Lymph # (Auto) 1.5 K/uL (1.0-4.3) 09/12/17 08:03 [place] # (Auto) 0.6 K/uL (0.0-0.8) 09/12/17 08:03 Eos # (Auto) 0.3 K/uL (0.0-0.7) 09/12/17 08:03 Baso # (Auto) 0.0 K/uL (0.0-0.2) 09/12/17 08:03 Differential Comment 09/09/17 13:03 PT 12.1 SECONDS (9.7-12.2) 09/09/17 15:43 INR 1.1 09/09/17 15:43 Sodium 139 mmol/L (132-148) 09/12/17 08:03 Potassium 3.3 mmol/L (3.6-5.2) L 09/12/17 08:03 Chloride 104 mmol/L (98-107) 09/12/17 08:03 Carbon Dioxide 25 mmol/L (22-30) 09/12/17 08:03 Anion Gap 13 (10-20) 09/12/17 08:03 BUN 18 mg/dL (7-17) H 09/12/17 08:03 Creatinine 0.8 mg/dL (0.7-1.2) 09/12/17 08:03 Est GFR ( Amer) > 60 09/12/17 08:03 Est GFR (Non-Af Amer) > 60 09/12/17 08:03 POC Glucose (mg/dL) 134 mg/dL (65-110) H 09/12/17 06:05 Random Glucose 130 mg/dL (65-105) H 09/12/17 08:03 Hemoglobin A1c 7.7 % (4.2-6.5) H D 09/10/17 04:14 Calcium 9.3 mg/dl (8.6-10.4) 09/12/17 08:03 Phosphorus 2.9 mg/dL (2.5-4.5) 09/12/17 08:03 Magnesium 1.8 mg/dL (1.6-2.3) 09/12/17 08:03 Total Bilirubin 0.8 mg/dL (0.2-1.3) 09/12/17 08:03 AST 34 U/L (14-36) 09/12/17 08:03 ALT 35 U/L (9-52) 09/12/17 08:03 Alkaline Phosphatase 88 U/L (38-126) 09/12/17 08:03 Troponin I 0.0160 ng/mL (0.00-0.120) 09/09/17 14:49 Total Protein 7.1 g/dL (6.3-8.3) 09/12/17 08:03 Albumin 3.7 g/dL (3.5-5.0) 09/12/17 08:03 Globulin 3.4 gm/dL (2.2-3.9) 09/12/17 08:03 Albumin/Globulin Ratio 1.1 (1.0-2.1) 09/12/17 08:03 Triglycerides 95 mg/dL (0-149) 09/10/17 04:14 Cholesterol 176 mg/dL (0-199) 09/10/17 04:14 LDL Cholesterol Direct 111 mg/dL (0-129) 09/10/17 04:14 HDL Cholesterol 46 mg/dL (30-70) 09/10/17 04:14 Free T4 1.35 ng/dL (0.78-2.19) 09/10/17 04:14 TSH 3rd Generation 1.36 mIU/L (0.46-4.68) 09/10/17 04:14 Urine Color Straw (YELLOW) 09/09/17 16:09 Urine Clarity Clear (Clear) 09/09/17 16:09 Urine pH 7.0 (5.0-8.0) 09/09/17 16:09 Ur Specific [place] 1.010 (1.003-1.030) 09/09/17 16:09 Urine Protein 2+ mg/dL (NEGATIVE) H 09/09/17 16:09 Urine Glucose (UA) 3+ mg/dL (Normal) H 09/09/17 16:09 Urine Ketones Negative mg/dL (NEGATIVE) 09/09/17 16:09 Urine Blood 1+ (NEGATIVE) H 09/09/17 16:09 Urine Nitrate Negative (NEGATIVE) 09/09/17 16:09 Urine Bilirubin Negative (NEGATIVE) 09/09/17 16:09 Urine Urobilinogen Normal mg/dL (0.2-1.0) 09/09/17 16:09 Ur Leukocyte Esterase 1+ Juliette/uL (Negative) H 09/09/17 16:09 Urine WBC (Auto) 42 /hpf (0-5) H 09/09/17 16:09 Urine RBC (Auto) 30 /hpf (0-3) H 09/09/17 16:09 Ur Squamous Epith Cells < 1 /hpf (0-5) 09/09/17 16:09 Urine Bacteria Rare (<OCC) 09/09/17 16:09 Urine Opiates Screen Negative (NEGATIVE) 09/09/17 16:08 Urine Methadone Screen Negative (NEGATIVE) 09/09/17 16:08 Ur Barbiturates Screen Negative (NEGATIVE) 09/09/17 16:08 Ur Phencyclidine Scrn Negative (NEGATIVE) 09/09/17 16:08 Ur Amphetamines Screen Negative (NEGATIVE) 09/09/17 16:08 U Benzodiazepines Scrn Negative (NEGATIVE) 09/09/17 16:08 U Oth Cocaine Metabols Negative (NEGATIVE) 09/09/17 16:08 U Cannabinoids Screen Negative (NEGATIVE) 09/09/17 16:08 - Hospital Course Hospital Course: HPI ( As per admission): This 77 y/o female with PMHx of Seizures, atrial Fibrillation, dementia, depression, HTN, HLD - presents to the ED from longterm after experiencing seizures. As per ems, she had 2 witnessed seizures at [facility], and was awake but confused. The patient is a poor historian due to her hx of dementia, and is unable to tell if she uses Keppra. The patient was pointing to her chest upon arrival to the ED. No additional complaints were made. While in the ED, she experienced a 3 minute seizure and was treated with Ativan, Keppra and Sodium Chloride. Further ROS could not be obtained due to lethargy and lack of cooperation and during exam. Hopsital course: Patient was admitted with the consideration of known seizure. Neurology, Dr. Box/Estuardo was consulted, who recommended that all current medical regimen and EEG and MRI to be obtained. Over the course of admission, patient had no acute issues or new deficit. Patient remained clinically stable and was determined stable for discharge to her longterm. Pertinent imaging: Head CT (09/09/17): No definitive acute intracranial findings although interval chronic lacunes are identified as well as small chronic lobar infarction left occipital lobe and conversion of prior infarct or chronic status at the right frontal lobe at this time. A right frontal subarachnoid hemorrhage has resolved. Follow-up CT or MRI are available if clinically warranted. Head CT (09/11/17): No acute intracranial abnormality. Right frontal and parietal lobe cystic encephalomalacia, sequela of remote MCA territory infarction. Old left MCA VIDEO RENTAL CLERK watershed territory infarction. Old lacunar infarctions in the right basal ganglia and left thalamus. Head MRI (09/11/17): There are 2 small acute infarct changes seen along the superomedial margins of a large right MCA territory chronic infarct. Diffuse gliosis are seen throughout most of the deep white matter right cerebral hemisphere. Associated ex vacuo dilatation right lateral ventricle due to the aforementioned large infarct. Lesser chronic periventricular white matter ischemic change left cerebral hemisphere. Scattered chronic bilateral basal nuclei, brainstem and left posterior temporal parietal watershed zone ischemic changes as above. No evidence of acute intracranial hemorrhage however there are hemosiderin deposits seen along the superficial margins of the large right MCA territory infarct.to significant generalized volume loss. No obstructive hydrocephalus. EEG (09/09/17): There are no focal epileptiform discharges noted. No clinical or subclinical seizures noted. This is a normal awake and drowsy EEG. For a complete impression, please refer to the EMR UDS NEGATIVE Discharge Exam - Head Exam Head Exam: ATRAUMATIC - Eye Exam Eye Exam: EOMI - ENT Exam ENT Exam: Mucous Membranes Moist - Respiratory Exam Respiratory Exam: Clear to PA & Lateral, NORMAL BREATHING PATTERN - Cardiovascular Exam Cardiovascular Exam: REGULAR RHYTHM, +S1, +S2 - GI/Abdominal Exam GI & Abdominal Exam: Normal Bowel Sounds, Soft - Extremities Exam Additional comments: - patient withdraws R arm/ R leg to deep palpation and with great movement - L arm / leg with very minimal movement. - Neurological Exam Neurological exam: Alert, Oriented x3 - Psychiatric Exam Psychiatric exam: Normal Affect - Skin Skin Exam: Normal Color Discharge Plan - Follow Up Plan Condition: GOOD Disposition: NURSING FACILITY MEDICAID CERT Instructions: Type 2 Diabetes, Atrial Fibrillation (DC), Acid Reflux ( Gastroesophageal Reflux Disease), Adult (DC), Seizures, Adult (DC), Constipation (DC), Hypertension (DC) Additional Instructions: Please discharge patient to [facility] Please resume all home medications Please follow up with your primary care physician within a week of discharge Recommendation of frequent medication reconciliation by patient's primary care physician Please follow up with Neurology, Dr. Marte or Dr. Box Please return to the hospital if symptoms resume Please take care Referrals: Pavel Marte MD [Staff Provider] - Ranjan Box MD [Staff Provider] - <Jonathan Francisco - Last Filed: 09/12/17 14:26> Provider - Provider Date of Admission: 09/09/17 15:31 Attending physician: Jonathan Francisco DO Hospital Course - Lab Results Lab Results: Micro Results 09/09/17 18:53 Urine,Catheterized Urine Culture - Final <10,000 CFU/ML. MULTIPLE SPECIES. PROBABLE CONTAMINATION. Most Recent Lab Values WBC 9.5 K/uL (4.8-10.8) 09/12/17 08:03 RBC 4.99 Mil/uL (3.80-5.20) 09/12/17 08:03 Hgb 14.6 g/dL (11.0-16.0) 09/12/17 08:03 Hct 42.4 % (34.0-47.0) 09/12/17 08:03 MCV 85.1 fL (81.0-99.0) 09/12/17 08:03 MCH 29.3 pg (27.0-31.0) 09/12/17 08:03 MCHC 34.5 g/dL (33.0-37.0) 09/12/17 08:03 RDW 14.6 % (11.5-14.5) H 09/12/17 08:03 Plt Count 253 K/uL (130-400) 09/12/17 08:03 MPV 9.0 fL (7.2-11.7) 09/12/17 08:03 Neut % (Auto) 73.9 % (50.0-75.0) 09/12/17 08:03 Lymph % (Auto) 15.3 % (20.0-40.0) L 09/12/17 08:03 [place] % (Auto) 6.7 % (0.0-10.0) 09/12/17 08:03 Eos % (Auto) 3.6 % (0.0-4.0) 09/12/17 08:03 Baso % (Auto) 0.5 % (0.0-2.0) 09/12/17 08:03 Neut # (Auto) 7.0 K/uL (1.8-7.0) 09/12/17 08:03 Lymph # (Auto) 1.5 K/uL (1.0-4.3) 09/12/17 08:03 [place] # (Auto) 0.6 K/uL (0.0-0.8) 09/12/17 08:03 Eos # (Auto) 0.3 K/uL (0.0-0.7) 09/12/17 08:03 Baso # (Auto) 0.0 K/uL (0.0-0.2) 09/12/17 08:03 Differential Comment 09/09/17 13:03 PT 12.1 SECONDS (9.7-12.2) 09/09/17 15:43 INR 1.1 09/09/17 15:43 Sodium 139 mmol/L (132-148) 09/12/17 08:03 Potassium 3.3 mmol/L (3.6-5.2) L 09/12/17 08:03 Chloride 104 mmol/L (98-107) 09/12/17 08:03 Carbon Dioxide 25 mmol/L (22-30) 09/12/17 08:03 Anion Gap 13 (10-20) 09/12/17 08:03 BUN 18 mg/dL (7-17) H 09/12/17 08:03 Creatinine 0.8 mg/dL (0.7-1.2) 09/12/17 08:03 Est GFR ( Amer) > 60 09/12/17 08:03 Est GFR (Non-Af Amer) > 60 09/12/17 08:03 POC Glucose (mg/dL) 306 mg/dL (65-110) H 09/12/17 11:09 Random Glucose 130 mg/dL (65-105) H 09/12/17 08:03 Hemoglobin A1c 7.7 % (4.2-6.5) H D 09/10/17 04:14 Calcium 9.3 mg/dl (8.6-10.4) 09/12/17 08:03 Phosphorus 2.9 mg/dL (2.5-4.5) 09/12/17 08:03 Magnesium 1.8 mg/dL (1.6-2.3) 09/12/17 08:03 Total Bilirubin 0.8 mg/dL (0.2-1.3) 09/12/17 08:03 AST 34 U/L (14-36) 09/12/17 08:03 ALT 35 U/L (9-52) 09/12/17 08:03 Alkaline Phosphatase 88 U/L (38-126) 09/12/17 08:03 Troponin I 0.0160 ng/mL (0.00-0.120) 09/09/17 14:49 Total Protein 7.1 g/dL (6.3-8.3) 09/12/17 08:03 Albumin 3.7 g/dL (3.5-5.0) 09/12/17 08:03 Globulin 3.4 gm/dL (2.2-3.9) 09/12/17 08:03 Albumin/Globulin Ratio 1.1 (1.0-2.1) 09/12/17 08:03 Triglycerides 95 mg/dL (0-149) 09/10/17 04:14 Cholesterol 176 mg/dL (0-199) 09/10/17 04:14 LDL Cholesterol Direct 111 mg/dL (0-129) 09/10/17 04:14 HDL Cholesterol 46 mg/dL (30-70) 09/10/17 04:14 Free T4 1.35 ng/dL (0.78-2.19) 09/10/17 04:14 TSH 3rd Generation 1.36 mIU/L (0.46-4.68) 09/10/17 04:14 Urine Color Straw (YELLOW) 09/09/17 16:09 Urine Clarity Clear (Clear) 09/09/17 16:09 Urine pH 7.0 (5.0-8.0) 09/09/17 16:09 Ur Specific [place] 1.010 (1.003-1.030) 09/09/17 16:09 Urine Protein 2+ mg/dL (NEGATIVE) H 09/09/17 16:09 Urine Glucose (UA) 3+ mg/dL (Normal) H 09/09/17 16:09 Urine Ketones Negative mg/dL (NEGATIVE) 09/09/17 16:09 Urine Blood 1+ (NEGATIVE) H 09/09/17 16:09 Urine Nitrate Negative (NEGATIVE) 09/09/17 16:09 Urine Bilirubin Negative (NEGATIVE) 09/09/17 16:09 Urine Urobilinogen Normal mg/dL (0.2-1.0) 09/09/17 16:09 Ur Leukocyte Esterase 1+ Juliette/uL (Negative) H 09/09/17 16:09 Urine WBC (Auto) 42 /hpf (0-5) H 09/09/17 16:09 Urine RBC (Auto) 30 /hpf (0-3) H 09/09/17 16:09 Ur Squamous Epith Cells < 1 /hpf (0-5) 09/09/17 16:09 Urine Bacteria Rare (<OCC) 09/09/17 16:09 Urine Opiates Screen Negative (NEGATIVE) 09/09/17 16:08 Urine Methadone Screen Negative (NEGATIVE) 09/09/17 16:08 Ur Barbiturates Screen Negative (NEGATIVE) 09/09/17 16:08 Ur Phencyclidine Scrn Negative (NEGATIVE) 09/09/17 16:08 Ur Amphetamines Screen Negative (NEGATIVE) 09/09/17 16:08 U Benzodiazepines Scrn Negative (NEGATIVE) 09/09/17 16:08 U Oth Cocaine Metabols Negative (NEGATIVE) 09/09/17 16:08 U Cannabinoids Screen Negative (NEGATIVE) 09/09/17 16:08 Attending/Attestation - Attestation I have personally seen and examined this patient.: Yes I have fully participated in the care of the patient.: Yes I have reviewed all pertinent clinical information, including history, physical exam and plan: Yes Notes (Text): 09/12/17 14:26 Medical attending: Patient was seen and examined by me, agrees the above note by the medical device sales. At this time there haven't been any acute changes. The previous 2 CAT scans did not show any acute findings but did show that there were areas of old prior chronic infarcts. She also has a history of prior subarachnoid hemorrhage are noted on these CAT scan imagings as well. The MRI also came back and noted that there were 2 small areas of acute infarcts seen next to a an old area on the right MCA territory chronic infarct. It noted no hemorrhage and no hydrocephalus. At this time will continue discharge patient back to her longterm along with medications recommended for further seizure control Thank you very much, Jonathan Francisco
[2017-09-12 13:57] VITALS: PULSE 76
[2017-09-12] MEDS: Digoxin 125 mcg (0.125 mg) Tab PO SCH (13:57)
[2017-09-12 14:00] VITALS: BP 156/65; PULSE 76
== END 2017-09-12 15:24 | DRG 101 ==
LOC: C.ER 11:50 → C.9E 15:31 → C.5S 09-10 11:19
PROVIDERS: ADMIT Hospitalist; ATTEND Hospitalist
DX: G40.409 Other generalized epilepsy and epileptic syndromes, not intractable, without status epilepticus (principal); I69.354 Hemiplegia and hemiparesis following cerebral infarction affecting left non-dominant side; E11.9 Type 2 diabetes mellitus without complications; E78.00 Pure hypercholesterolemia, unspecified; F03.90 Unspecified dementia, unspecified severity, without behavioral disturbance, psychotic disturbance, mood disturbance, and anxiety; F32.9 Major depressive disorder, single episode, unspecified; Z66 Do not resuscitate; I69.320 Aphasia following cerebral infarction; M06.9 Rheumatoid arthritis, unspecified; K21.9 Gastro-esophageal reflux disease without esophagitis; I48.91 Unspecified atrial fibrillation; Z79.4 Long term (current) use of insulin; I10 Essential (primary) hypertension

== ENCOUNTER 2017-09-16 10:44 | Emergency (ER) | payer MEDICARE, MEDICAID ==
[2017-09-16 10:44] VITALS: PULSE 76; BMI 21.2
--- NOTE | 2017-09-16 11:00 | C.PDOC ---
History Of Present Illness 77 y/o female, whose PMH includes atrial Fibrillation arrhythmia (afib), dementia, depression, HTN, hypercholesterolemia, Seizures, CVA w/Left sided hemiparesis who presents to the emergency department from senior living after had xray of Right hip performed on 09/14/17 outpt with results (+) impacted subcapital fx. As per pt, unable to recall injury to Right hip. Denies any other complaints. Pt is poor historian, SD transfer papers review. FYI: records from previous ED visits review, last admission to [facility] due to sz episode. Time Seen by Provider: 09/16/17 10:50 Chief Complaint (Nursing): Hip Pain History Per: Patient, EMS Past Medical History Reviewed: Historical Data, Nursing Documentation, Vital Signs Vital Signs: Last Vital Signs Temp 98.3 F 09/16/17 12:38 Pulse 71 09/16/17 12:38 Resp 18 09/16/17 12:38 BP 150/79 09/16/17 12:38 Pulse Ox 97 09/16/17 12:38 - Medical History PMH: Anxiety, Arthritis, Atrial Fibrillation, Cardia Arrhythmia (afib), Dementia , Depression, HTN, Hypercholesterolemia, Rheumatoid Arthritis, Seizures Denies: Alzheimer's Disease, Chronic Kidney Disease Family History: States: Unknown Family Hx - Social History Hx Alcohol Use: (unable to get information) Hx Substance Use: (Unable to get inf.) Review Of Systems Except As Marked, All Systems Reviewed And Found Negative. Constitutional: Negative for: Fever Cardiovascular: Negative for: Chest Pain, Palpitations Respiratory: Negative for: Shortness of Breath, Wheezing Musculoskeletal: Positive for: Other (Right hip). Negative for: Neck Pain, Back Pain Skin: Negative for: Rash Physical Exam - Physical Exam Appears: Non-toxic, No Acute Distress Skin: Normal Color, Warm, No Ecchymosis Head: Atraumatic, Normacephalic Eye(s): bilateral: PERRL Nose: No Flaring, No Discharge Oral Mucosa: Moist, No Drooling Tongue: Normal Appearing Throat: No Erythema, No Drooling Neck: Trachea Midline, Supple Cardiovascular: Rhythm Irregular, No Murmur, No JVD Respiratory: No Decreased Breath Sounds, No Accessory Muscle Use, No Rales, No Rhonchi, No Stridor, No Wheezing Gastrointestinal/Abdominal: Soft, No Tenderness, No Distention, No Guarding Back: No CVA Tenderness Extremity: Tenderness (mild overlying Right hip), Capillary Refill (less than 2 sec), Other (Right leg shortening) Pulses: Right Femoral: Normal, Right Dorsalis Pedis: Normal Neurological/Psych: Other (Left sided hemiparesis) ED Course And Treatment - Laboratory Results Result Diagrams: 09/16/17 11:52 09/16/17 11:52 Lab Interpretation: No Acute Changes ECG: Interpreted By Me, Viewed By Me ECG Rhythm: Sinus Rhythm ECG Interpretation: No Changes From Prior Interpretation Of ECG: AFib@78/min O2 Sat by Pulse Oximetry: 97 Pulse Ox Interpretation: Normal - Radiology CXR: Interpreted by Me, Viewed By Me CXR Interpretation: Yes: No Acute Disease - Other Rad Right hip X-Ray: Interpreted by Me, Viewed By Me Interpretation: (+) hip fx - CT Scan/US CT Right hip Other Rad Studies (CT/US): Radiology Report Reviewed CT/US Interpretation: MPRESSION: Bile impacted subcapital fracture right femoral head with minor varus angulation deformity.No evidence of dislocation Progress Note: Case discussed with Domenic madrid admission arranged with ortho consult . case dsicussed with , notified about consult, requested CT Right hip w/o contrast. Disposition - Disposition Disposition: HOSPITALIZED Disposition Time: 11:35 Condition: STABLE - Clinical Impression Clinical Impression: Hip fracture, UTI (urinary tract infection)
[2017-09-16 11:57] LABS: BASO # 0.1 K/uL (0.0-0.2); EOS # 0.3 K/uL (0.0-0.7); EOS % 2.9 % (0.0-4.0); HEMOGLOBIN 14.9 g/dL (11.0-16.0); LYMPH # 1.8 K/uL (1.0-4.3); LYMPH % 16.8 % (20.0-40.0); MEAN CELL VOLUME 84.8 fL (81.0-99.0); MEAN CORPUSCULAR HEMOGLOBIN 29.2 pg (27.0-31.0); MEAN CORPUSCULAR HGB CONC 34.4 g/dL (33.0-37.0); MEAN PLATELET VOLUME 9.2 fL (7.2-11.7); MONO % 9.5 % (0.0-10.0); NEUT # 7.6 K/uL (1.8-7.0); NEUT % 69.8 % (50.0-75.0); NRBC % 0.1 % (0.0-2.0); RBC 5.09 Mil/uL (3.80-5.20); RED CELL DISTRIBUTION WIDTH 14.6 % (11.5-14.5); WHITE BLOOD COUNT 10.9 K/uL (4.8-10.8)
--- NOTE | 2017-09-16 12:07 | RAD ---
PROCEDURE: CHEST RADIOGRAPH, 1 VIEW HISTORY: Chest pain COMPARISON: Comparison chest 09/10/2017 FINDINGS: LUNGS: Interval slight improvement previously noted pulmonary congestion. PLEURA: No pneumothorax or pleural fluid seen. CARDIOVASCULAR: Cardiomegaly. OSSEOUS STRUCTURES: No significant abnormalities. VISUALIZED UPPER ABDOMEN: Normal. OTHER FINDINGS: None. IMPRESSION: Interval slight improvement previously noted pulmonary congestion.
--- NOTE | 2017-09-16 12:08 | RAD ---
PROCEDURE: Pelvis right hip the HISTORY: Injury. Rule out fracture. COMPARISON: No prior study available comparison TECHNIQUE: AP view of the pelvis and right hip performed. FINDINGS: Current study reveals a subcapital fracture right hip with mild varus angulation deformity. Right femoral head is appropriately located within the right acetabulum. Left hip intact and appropriately located. Remainder of the pelvis appears intact as well. Degenerative spondylosis lower lumbosacral spine. IMPRESSION: Subcapital fracture right hip with mild varus angulation.
[2017-09-16 12:09] LABS: INR 1.5; PROTHROMBIN TIME 15.9 SECONDS (9.7-12.2)
[2017-09-16 12:11] LABS: URINE BILIRUBIN NEGATIVE (NEGATIVE); URINE BLOOD 3+ (NEGATIVE); URINE CLARITY Hazy (Clear); URINE COLOR Yellow (YELLOW); URINE GLUCOSE (UA) NORMAL (Normal); URINE LEUKOCYTE ESTERASE 3+ Leu/uL (Negative); URINE PROTEIN 2+ mg/dL (NEGATIVE); URINE UROBILINOGEN NORMAL mg/dL (0.2-1.0)
[2017-09-16 12:22] LABS: ALB/GLOB RATIO 1.1 (1.0-2.1); ALT/SGPT 42 U/L (9-52); AST/SGOT 31 U/L (14-36); BLOOD UREA NITROGEN 22 mg/dL (7-17); CALCIUM 10.2 mg/dl (8.6-10.4); GFR AFRICAN-AMERICAN > 60; GFR NON-AFRICAN AMERICAN > 60
--- NOTE | 2017-09-16 13:36 | CT ---
PROCEDURE: CT scan right hip HISTORY: Right hip pain, fx on xray COMPARISON: None available. TECHNIQUE: Contiguous axial images of the right hip were obtained. Coronal and sagittal reformats were generated. This CT exam was performed using one or more of the following dose reduction techniques: Automated exposure control, adjustment of the mA and/or kV according to patient size, and/or use of iterative reconstruction technique. FINDINGS: BONES: Current study re- demonstrates a mildly impacted subcapital fracture of the right femoral head with minor varus angulation. . . Right femoral head is appropriately located within the right acetabulum. No other fractures. RIGHT HIP JOINT: Joint spaces relatively preserved. SOFT TISSUES: Note made of a large amount of stool seen within the rectosigmoid consistent with fecal retention/constipation. IMPRESSION: Bile impacted subcapital fracture right femoral head with minor varus angulation deformity.No evidence of dislocation .
[2017-09-16] MEDS ORDERED: Alum-Mag Hydrox-Simethicone Susp (30 mL) PO PRN (14:05)
[2017-09-16] MEDS ORDERED: cefTRIAXone IV 1 gm in Dextros 50 ML IVPB ONE (14:51)
--- NOTE | 2017-09-16 15:18 | CP.PCM.DIS ---
Provider - Provider Date of Admission: 09/16/17 11:36 Attending physician: Jeff Cannon MD Primary care physician: Dr Morelos Time Spent in preparation of Discharge (in minutes): 29 Hospital Course - Lab Results Lab Results: Most Recent Lab Values WBC 10.9 K/uL (4.8-10.8) H 09/16/17 11:52 RBC 5.09 Mil/uL (3.80-5.20) 09/16/17 11:52 Hgb 14.9 g/dL (11.0-16.0) 09/16/17 11:52 Hct 43.1 % (34.0-47.0) 09/16/17 11:52 MCV 84.8 fL (81.0-99.0) 09/16/17 11:52 MCH 29.2 pg (27.0-31.0) 09/16/17 11:52 MCHC 34.4 g/dL (33.0-37.0) 09/16/17 11:52 RDW 14.6 % (11.5-14.5) H 09/16/17 11:52 Plt Count 286 K/uL (130-400) 09/16/17 11:52 MPV 9.2 fL (7.2-11.7) 09/16/17 11:52 Neut % (Auto) 69.8 % (50.0-75.0) 09/16/17 11:52 Lymph % (Auto) 16.8 % (20.0-40.0) L 09/16/17 11:52 [place] % (Auto) 9.5 % (0.0-10.0) 09/16/17 11:52 Eos % (Auto) 2.9 % (0.0-4.0) 09/16/17 11:52 Baso % (Auto) 1.0 % (0.0-2.0) 09/16/17 11:52 Neut # (Auto) 7.6 K/uL (1.8-7.0) H 09/16/17 11:52 Lymph # (Auto) 1.8 K/uL (1.0-4.3) 09/16/17 11:52 [place] # (Auto) 1.0 K/uL (0.0-0.8) H 09/16/17 11:52 Eos # (Auto) 0.3 K/uL (0.0-0.7) 09/16/17 11:52 Baso # (Auto) 0.1 K/uL (0.0-0.2) 09/16/17 11:52 PT 15.9 SECONDS (9.7-12.2) H 09/16/17 11:52 INR 1.5 09/16/17 11:52 APTT 38 SECONDS (21-34) H 09/16/17 11:52 Sodium 143 mmol/L (132-148) 09/16/17 11:52 Potassium 3.5 mmol/L (3.6-5.2) L 09/16/17 11:52 Chloride 98 mmol/L (98-107) 09/16/17 11:52 Carbon Dioxide 31 mmol/L (22-30) H 09/16/17 11:52 Anion Gap 17 (10-20) 09/16/17 11:52 BUN 22 mg/dL (7-17) H 09/16/17 11:52 Creatinine 0.9 mg/dL (0.7-1.2) 09/16/17 11:52 Est GFR ( Amer) > 60 09/16/17 11:52 Est GFR (Non-Af Amer) > 60 09/16/17 11:52 Random Glucose 159 mg/dL (65-105) H 09/16/17 11:52 Calcium 10.2 mg/dl (8.6-10.4) 09/16/17 11:52 Total Bilirubin 0.8 mg/dL (0.2-1.3) 09/16/17 11:52 AST 31 U/L (14-36) 09/16/17 11:52 ALT 42 U/L (9-52) 09/16/17 11:52 Alkaline Phosphatase 95 U/L (38-126) 09/16/17 11:52 Total Protein 7.8 g/dL (6.3-8.3) 09/16/17 11:52 Albumin 4.0 g/dL (3.5-5.0) 09/16/17 11:52 Globulin 3.8 gm/dL (2.2-3.9) 09/16/17 11:52 Albumin/Globulin Ratio 1.1 (1.0-2.1) 09/16/17 11:52 Urine Color Yellow (YELLOW) 09/16/17 12:02 Urine Clarity Hazy (Clear) 09/16/17 12:02 Urine pH 6.0 (5.0-8.0) 09/16/17 12:02 Ur Specific [place] 1.016 (1.003-1.030) 09/16/17 12:02 Urine Protein 2+ mg/dL (NEGATIVE) H 09/16/17 12:02 Urine Glucose (UA) Normal mg/dL (Normal) 09/16/17 12:02 Urine Ketones Negative mg/dL (NEGATIVE) 09/16/17 12:02 Urine Blood 3+ (NEGATIVE) H 09/16/17 12:02 Urine Nitrate Negative (NEGATIVE) 09/16/17 12:02 Urine Bilirubin Negative (NEGATIVE) 09/16/17 12:02 Urine Urobilinogen Normal mg/dL (0.2-1.0) 09/16/17 12:02 Ur Leukocyte Esterase 3+ [place]/uL (Negative) H 09/16/17 12:02 Urine WBC (Auto) 137 /hpf (0-5) H 09/16/17 12:02 Urine RBC (Auto) 141 /hpf (0-3) H 09/16/17 12:02 Blood Type O POSITIVE 09/16/17 11:52 Antibody Screen Negative 09/16/17 11:52 - Hospital Course Hospital Course: This is a 77 year old female who had an XRAY of the hip at [facility] on 09/13. It showed that she has a suspected right hip impaction and so she was sent into the ER by her rogelioy physician at the [facility]. 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 In March 2016 she had a massive right frontal temporal area ischemic stroke that then coverted into a hemmoragic CVA. The patient is almost completely bed bound and has 0/5 strength not able to move her left arm or leg. At the ER we ordered a CT of the hips to get a better picture of what happened and the patient has a mild impacted subcapital fracture of right femoral head with minor varus angulation. No dislocation. Patient has extensive dementia due to history of a large CVA over 1 year ago and is almost completely bedbound with weakness. Considering her cardiac history and also that she is mostly bed bound - it was decided that the patient should not undergo such a large surgery for the hip. Per discussion with orthopedic surgery as well primary physician - will send back to [facility]. Per orthopedic the patient is ok to be sitting in a chair. Discharge Exam - Eye Exam Eye Exam: Normal appearance Pupil Exam: NORMAL ACCOMODATION - Respiratory Exam Respiratory Exam: NORMAL BREATHING PATTERN, UNREMARKABLE - Cardiovascular Exam Cardiovascular Exam: REGULAR RHYTHM - GI/Abdominal Exam GI & Abdominal Exam: Normal Bowel Sounds, Unremarkable - Neurological Exam Neurological exam: Alert, Altered Additional comments: 0/5 muscle strength left arm and 0/5 muscle strength left leg. She only has 4/5 strenth of the right arm and hand. - Psychiatric Exam Psychiatric exam: Depressed, Flat Affect - Skin Skin Exam: Pallor, Pallor Discharge Plan - Follow Up Plan Condition: STABLE Disposition: REHAB FACILITY/REHAB UNIT Instructions: Hip Fracture Additional Instructions: Follow up with PMD and Orthopedist in 1-2 days for re-evaluation and further treatment as need Referrals: Sander Morelos MD [Staff Provider] -
--- NOTE | 2017-09-16 16:08 | CP.PCM.HP ---
History of Present Illness - History of Present Illness History of Present Illness: Patient is a 77 year old female with PMHx: CVA, Seizures, atrial Fibrillation, dementia, depression, HTN, HLD who was sent from half-way to hospital for right hip mildly impacted subcapital fracture right femoral head. Outpatient xray was performed 09/13/17. Patient had repeat xray and CT of right hip at [facility] which confirmed the findings listed above. Patient has had prior CVA and as a result does not ambulate much. Patient denies history of fall or hip pain. Case was discussed at length with consulting orthopedic surgeon, Dr. Marrero, patient's PMD Dr. Morelos, and attending physician. Decision was made not to admit patient at this time and can be followed as outpatient at discretion of her PMD, Dr. Morelos. Present on Admission - Present on Admission Any Indicators Present on Admission: No Review of Systems - Review of Systems Systems not reviewed;Unavailable: Dementia - Musculoskeletal Musculoskeletal: absent: Joint Swelling Additional comments: denies joint pain, denies hip pain Past Patient History - Infectious Disease Hx of Infectious Diseases: None - Past Medical History & Family History Past Medical History?: Yes - Past Social History Smoking Status: Never Smoked - CARDIAC Hx Atrial Fibrillation: Yes Hx Cardia Arrhythmia: Yes (afib) Hx Hypercholesterolemia: Yes Hx Hypertension: Yes - PULMONARY Hx Respiratory Disorders: Yes Hx Asthma: Yes - NEUROLOGICAL Hx Alzheimer's Disease: No Hx Dementia: Yes Hx Seizures: Yes - HEENT Hx HEENT Problems: Yes Hx Cataracts: Yes - RENAL Hx Chronic Kidney Disease: No - ENDOCRINE/METABOLIC Hx Endocrine Disorders: Yes Hx Diabetes Mellitus Type 2: Yes - HEMATOLOGICAL/ONCOLOGICAL Hx Blood Disorders: No - INTEGUMENTARY Hx Dermatological Problems: No - MUSCULOSKELETAL/RHEUMATOLOGICAL Hx Arthritis: Yes Hx Rheumatoid Arthritis: Yes - GASTROINTESTINAL Hx Gastrointestinal Disorders: Yes Hx Gastroesophageal Reflux: Yes Other/Comment: dysphagia - GENITOURINARY/GYNECOLOGICAL Hx Genitourinary Disorders: Yes Hx Incontinence: Yes Hx Urinary Tract Infection: Yes - PSYCHIATRIC Hx Anxiety: Yes Hx Depression: Yes Hx Substance Use: (Unable to get inf.) - SURGICAL HISTORY Hx Surgeries: Yes (tonsillectomy, right brest cyst removal) Hx Hysterectomy: Yes - ANESTHESIA Hx Anesthesia: Yes Hx Anesthesia Reactions: No Hx Malignant Hyperthermia: No Meds Home Medications: Home Medication List Medication Instructions Recorded Confirmed Type Nitrofurantoin Macrocrystals 1 cap PO BID #14 cap 09/16/17 Rx [Macrobid] Allergies/Adverse Reactions: Allergies Allergy/AdvReac Type Severity Reaction Status Date / Time No Known Allergies Allergy Verified 03/21/16 09:49 Physical Exam - Constitutional Appears: No Acute Distress, Chronically Ill - Head Exam Head Exam: ATRAUMATIC - Eye Exam Eye Exam: Periorbital tenderness - ENT Exam ENT Exam: Mucous Membranes Moist - Respiratory Exam Respiratory Exam: Clear to Auscultation Bilateral, NORMAL BREATHING PATTERN - Cardiovascular Exam Cardiovascular Exam: +S1, +S2 - GI/Abdominal Exam GI & Abdominal Exam: Normal Bowel Sounds, Soft - Extremities Exam Additional comments: mildly shortened right leg as compared to left thickened toenails b/l feet - Neurological Exam Neurological exam: Alert Additional comments: patient not oriented to place or time - Skin Skin Exam: Warm Results - Vital Signs Recent Vital Signs: Last Vital Signs Temp 98.3 F 09/16/17 12:38 Pulse 71 09/16/17 12:38 Resp 18 09/16/17 12:38 BP 150/79 09/16/17 12:38 Pulse Ox 97 09/16/17 13:55 - Labs Result Diagrams: 09/16/17 11:52 09/16/17 11:52 Labs: Laboratory Results - last 24 hr 09/16/17 09/16/17 09/16/17 11:52 11:52 11:52 WBC 10.9 H RBC 5.09 Hgb 14.9 Hct 43.1 MCV 84.8 MCH 29.2 MCHC 34.4 RDW 14.6 H Plt Count 286 MPV 9.2 Neut % (Auto) 69.8 Lymph % (Auto) 16.8 L [place] % (Auto) 9.5 Eos % (Auto) 2.9 Baso % (Auto) 1.0 Neut # (Auto) 7.6 H Lymph # (Auto) 1.8 [place] # (Auto) 1.0 H Eos # (Auto) 0.3 Baso # (Auto) 0.1 PT 15.9 H INR 1.5 APTT 38 H Sodium 143 Potassium 3.5 L Chloride 98 Carbon Dioxide 31 H Anion Gap 17 BUN 22 H Creatinine 0.9 Est GFR ( Amer) > 60 Est GFR (Non-Af Amer) > 60 Random Glucose 159 H Calcium 10.2 Total Bilirubin 0.8 AST 31 ALT 42 Alkaline Phosphatase 95 Total Protein 7.8 Albumin 4.0 Globulin 3.8 Albumin/Globulin Ratio 1.1 Urine Color Urine Clarity Urine pH Ur Specific [place] Urine Protein Urine Glucose (UA) Urine Ketones Urine Blood Urine Nitrate Urine Bilirubin Urine Urobilinogen Ur Leukocyte Esterase Urine WBC (Auto) Urine RBC (Auto) Blood Type Antibody Screen 09/16/17 09/16/17 11:52 12:02 WBC RBC Hgb Hct MCV MCH MCHC RDW Plt Count MPV Neut % (Auto) Lymph % (Auto) [place] % (Auto) Eos % (Auto) Baso % (Auto) Neut # (Auto) Lymph # (Auto) [place] # (Auto) Eos # (Auto) Baso # (Auto) PT INR APTT Sodium Potassium Chloride Carbon Dioxide Anion Gap BUN Creatinine Est GFR ( Amer) Est GFR (Non-Af Amer) Random Glucose Calcium Total Bilirubin AST ALT Alkaline Phosphatase Total Protein Albumin Globulin Albumin/Globulin Ratio Urine Color Yellow Urine Clarity Hazy Urine pH 6.0 Ur Specific [place] 1.016 Urine Protein 2+ H Urine Glucose (UA) Normal Urine Ketones Negative Urine Blood 3+ H Urine Nitrate Negative Urine Bilirubin Negative Urine Urobilinogen Normal Ur Leukocyte Esterase 3+ H Urine WBC (Auto) 137 H Urine RBC (Auto) 141 H Blood Type O POSITIVE Antibody Screen Negative Assessment & Plan - Assessment and Plan (Free Text) Assessment: This is a 77 year old female who had an XRAY of the hip at [facility] on 09/13. It showed that she has a suspected right hip impaction and so she was sent into the ER by her pirmary physician at the [facility]. 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 In March 2016 she had a massive right frontal temporal area ischemic stroke that then coverted into a hemmoragic CVA. The patient is almost completely bed bound and has 0/5 strength not able to move her left arm or leg. At the ER we ordered a CT of the hips to get a better picture of what happened and the patient has a mild impacted subcapital fracture of right femoral head with minor varus angulation. No dislocation. Patient has extensive dementia due to history of a large CVA over 1 year ago and is almost completely bedbound with weakness. Considering her cardiac history and also that she is mostly bed bound - it was decided that the patient should not undergo such a large surgery for the hip. Per discussion with orthopedic surgery as well primary physician - will send back to [facility]. Per orthopedic the patient is ok to be sitting in a chair. Patient is to resume all her home medications.
[2017-09-16 16:12] VITALS: BP 145/79; PULSE 77; RESP 16; TEMP 98.1; O2SAT 98
[2017-09-16] MEDS ORDERED: (Novolog) Insulin Aspart, Recombinant 100 u/ml 10 ml vial SC SCH (16:30)
[2017-09-17] MEDS ORDERED: Digoxin 125 mcg (0.125 mg) Tab PO SCH (14:00)
--- NOTE | 2017-09-18 23:30 | CARD ---
APPROVED REPORT EKG Measurement Heart [id number] <Conclusion> Atrial fibrillation Septal infarct, age undetermined Abnormal ECG
== END 2017-09-16 16:12 ==
LOC: C.ER 10:44 → C.9E 11:36 → UNDOADMIN 11:36 → C.ER 16:12
DX: N39.0 Urinary tract infection, site not specified (principal); S72.001A Fracture of unspecified part of neck of right femur, initial encounter for closed fracture; X58.XXXA Exposure to other specified factors, initial encounter; I48.91 Unspecified atrial fibrillation; E78.00 Pure hypercholesterolemia, unspecified; I69.354 Hemiplegia and hemiparesis following cerebral infarction affecting left non-dominant side; M06.9 Rheumatoid arthritis, unspecified; F02.80 Dementia in other diseases classified elsewhere, unspecified severity, without behavioral disturbance, psychotic disturbance, mood disturbance, and anxiety; Z74.01 Bed confinement status
CPT/HCPCS: 71045; 73502; 73700; 80053; 81001; 85025; 85610; 85730; 86850; 86900; 87040; 87086; 87149; 87205; 96365; 99285; J0696